=== PATIENT | female | born 1985 | race Caucasian/White ===

== ENCOUNTER 2019-08-14 07:34 | Outpatient (REF) | payer OTHER, SELFPAY ==
[2019-08-14 08:35] LABS: Basophils # 0.1 10^3/uL (0.0-0.1); Basophils % 1.3 %; Eosinophils # 0.1 10^3/uL (0.0-0.8); Eosinophils % 2.3 %; Hematocrit 39.8 % (37.0-47.0); Lymphocytes # 2.1 10^3/uL (0.8-4.8); Lymphocytes % 33.7 %; Mean Corpuscular HGB Conc 30.2 g/dL (30.0-36.0); Mean Corpuscular Hemoglobin 24.8 pg (28.0-34.0); Mean Corpuscular Volume 82.2 fL (81-99); Mean Platelet Volume 10.7 fL (7.4-10.4); Monocytes # 0.5 10^3/uL (0.2-0.9); Monocytes % 7.3 %; Neutrophils # 3.4 10^3/uL (1.8-7.7); Neutrophils % 55.2 %; Nucleated Red Blood Cells % 0 %; Platelet Count 291 10^3/cmm (130-400); Red Blood Count 4.84 10^6/uL (4.1-5.3); Red Cell Distribution Width 15.3 % (12.1-15.1); White Blood Count 6.2 10^3/uL (4.0-10.0)
[2019-08-14 13:23] LABS: Chol HDL Ratio 2.98 mg/dL (0.0-4.40); Cholesterol 164 mg/dL (0-200); Glucose 151 mg/dL (65-115); HDL Cholesterol 55 mg/dL (60-100); LDL Cholesterol Calculated 89 mg/dL (50-129); LDL HDL Ratio 1.62 RATIO (0.00-3.22); Triglycerides 102 mg/dL (0-150)
[2019-08-15 03:15] LABS: Estmated Average Glucose 174; Hemoglobin A1C 7.7 % (4.0-6.0)
== END 2019-08-14 07:35 | disposition home or self-care (01) ==
LOC: LAB 07:34
PROVIDERS: Family Provider Internal Medicine; PCP Internal Medicine; Visit Provider Dermatology
DX: Z01.89 Encounter for other specified special examinations (principal)
CPT/HCPCS: 80061; 82947; 83036; 84443; 85025

== ENCOUNTER → 2019-09-11 16:20 | Outpatient (BNVA) | payer OTHER, SELFPAY | PROVIDERS: Family Provider Internal Medicine; PCP Internal Medicine; Visit Provider Obstetrics & Gynecology | DX: N76.0 Acute vaginitis (principal); B96.89 Other specified bacterial agents as the cause of diseases classified elsewhere | CPT/HCPCS: 87210 ==

== ENCOUNTER → 2019-11-13 14:33 | Outpatient (BNVA) | payer OTHER, SELFPAY | PROVIDERS: Family Provider Internal Medicine; PCP Internal Medicine; Visit Provider Obstetrics & Gynecology | DX: B37.3 Candidiasis of vulva and vagina (principal) | CPT/HCPCS: 87210 ==

== ENCOUNTER → 2020-01-13 08:49 | Outpatient (BNVA) | payer OTHER, SELFPAY | PROVIDERS: Family Provider Internal Medicine; PCP Internal Medicine; Visit Provider Dermatology | DX: L92.0 Granuloma annulare (principal); D22.9 Melanocytic nevi, unspecified | CPT/HCPCS: 11900; 96372; 99203; J3301 ==

== ENCOUNTER → 2020-02-10 09:02 | Outpatient (BNVA) | payer OTHER, SELFPAY | PROVIDERS: Family Provider Internal Medicine; PCP Internal Medicine; Visit Provider Dermatology | DX: L92.0 Granuloma annulare (principal) | CPT/HCPCS: 11901; 99213; J3301 ==

== ENCOUNTER → 2020-03-04 14:18 | Outpatient (BNVA) | payer OTHER, SELFPAY | PROVIDERS: Family Provider Internal Medicine; PCP Internal Medicine; Visit Provider Nurse Practitioner | DX: J02.9 Acute pharyngitis, unspecified (principal) | CPT/HCPCS: 87071; 87880 ==

== ENCOUNTER → 2020-03-23 15:29 | Outpatient (BNVA) | payer OTHER, SELFPAY | PROVIDERS: Family Provider Internal Medicine; PCP Internal Medicine; Visit Provider Dermatology | DX: L92.0 Granuloma annulare (principal) | CPT/HCPCS: 11900; 99213; J3301 ==

== ENCOUNTER → 2020-04-14 16:16 | Outpatient (BNVA) | payer OTHER, SELFPAY | PROVIDERS: Family Provider Internal Medicine; PCP Internal Medicine; Visit Provider Obstetrics & Gynecology | DX: L65.9 Nonscarring hair loss, unspecified (principal) | CPT/HCPCS: 84402; 84443 ==

== ENCOUNTER → 2020-05-25 07:57 | Outpatient (BNVA) | payer OTHER, SELFPAY | PROVIDERS: Family Provider Internal Medicine; PCP Internal Medicine; Visit Provider Podiatrist Foot & Ankle Surgery | DX: M79.671 Pain in right foot (principal) | CPT/HCPCS: 73630 ==

== ENCOUNTER 2020-05-31 08:21 | Outpatient (CLI) | payer OTHER, SELFPAY ==
--- NOTE | 2020-05-31 08:30 | MM_ITS ---
WS: [id number] BILATERAL DIGITAL DIAGNOSTIC MAMMOGRAM MAMMOGRAPHY WITH CAD CLINICAL INFORMATION: N64.4 - Mastodynia COMPARISON: 07 22,018 TECHNIQUE: Bilateral CC, MLO, and ML views. FINDINGS: The breasts are composed of heterogeneous fibroglandular density, which can limit the detection of sm all underlying mass lesions. No suspicious mammographic findings in the left breast. Ultrasound is pe nding. Unremarkable and unchanged right breast. ULTRASOUND BREAST LEFT TECHNIQUE: Ultrasound left breast focused area of concern. CLINICAL INFORMATION: N64.4 - Mastodynia COMPARISON: None. FINDINGS: Ultrasound left breast in the area of concern. No evidence of cystic or solid lesions. Normal underly ing parenchymal tissue. No lesions to target for biopsy. MM/[place] [id number] IMPRESSION: BI-RADS: 2-Benign FOLLOW UP: 1 Year Follow-up Recommend return to annual screening mammography.
--- NOTE | 2020-05-31 09:00 | US_ITS ---
WS: [id number] BILATERAL DIGITAL DIAGNOSTIC MAMMOGRAM MAMMOGRAPHY WITH CAD CLINICAL INFORMATION: N64.4 - Mastodynia COMPARISON: 07 22,018 TECHNIQUE: Bilateral CC, MLO, and ML views. FINDINGS: The breasts are composed of heterogeneous fibroglandular density, which can limit the detection of sm all underlying mass lesions. No suspicious mammographic findings in the left breast. Ultrasound is pe nding. Unremarkable and unchanged right breast. ULTRASOUND BREAST LEFT TECHNIQUE: Ultrasound left breast focused area of concern. CLINICAL INFORMATION: N64.4 - Mastodynia COMPARISON: None. FINDINGS: Ultrasound left breast in the area of concern. No evidence of cystic or solid lesions. Normal underly ing parenchymal tissue. No lesions to target for biopsy. US/US breast LT limited* [id number] IMPRESSION: BI-RADS: 2-Benign FOLLOW UP: 1 Year Follow-up Recommend return to annual screening mammography.
== END 2020-05-31 08:22 | disposition home or self-care (01) ==
LOC: RADSHAW 08:24
PROVIDERS: PCP Internal Medicine; Visit Provider Obstetrics & Gynecology
DX: N64.4 Mastodynia (principal)
CPT/HCPCS: 76642; 77066

== ENCOUNTER → 2020-12-14 10:50 | Outpatient (BNVA) | payer OTHER, SELFPAY | PROVIDERS: PCP Family Medicine; Visit Provider Nurse Practitioner Women's Health | DX: Z01.419 Encounter for gynecological examination (general) (routine) without abnormal findings (principal); F52.31 Female orgasmic disorder | CPT/HCPCS: 88175 ==

== ENCOUNTER 2021-09-28 07:46 | Outpatient (CLI) | payer OTHER, SELFPAY ==
--- NOTE | 2021-09-28 07:55 | US_ITS ---
WS: [id number] ULTRASOUND THYROID TECHNIQUE: Ultrasound of the thyroid. CLINICAL INFORMATION: HYPERTHYROIDISM COMPARISON: None. FINDINGS: Thyroid: Right and left thyroid lobes are normal in size and echotexture. Solid mixed echogenicity nodule RIGHT thyroid measuring 7.5 x 5.1 x 8.1 mm in the mid thyroid. Tiny cystic lesion in LEFT mid thyroid measuring 3.1 x 2.1 x 3.5 mm likely incidental colloid cyst. Right thyroid lobe: 5.0 cm x 1.4 cm x 1.1 cm Left thyroid lobe: 3.8 cm x 1.3 cm x 1.3 cm. Isthmus: 0.3 mm. Cervical lymphadenopathy: None. US/US thyroid [id number] IMPRESSION: Solid mixed echogenicity nodule RIGHT thyroid measuring 7.5 x 5.1 x 8.1 mm in t he mid thyroid with a hypoechoic halo. This can be further evaluated with FNA o r alternatively 12 month follow-up.
== END 2021-09-28 07:47 | disposition home or self-care (01) ==
LOC: RAD 07:48
PROVIDERS: PCP Family Medicine; Visit Provider Physician Assistant
DX: E05.90 Thyrotoxicosis, unspecified without thyrotoxic crisis or storm (principal); E04.1 Nontoxic single thyroid nodule
CPT/HCPCS: 76536

== ENCOUNTER 2022-03-20 08:43 | Outpatient (CLI) | payer SELFPAY ==
[2022-03-20 08:53] LABS: HF Add Manual Diff No
[2022-03-20 09:15] LABS: Basophils # 0.1 10^3/uL (0.0-0.1); Basophils % 1.5 %; Eosinophils # 0.2 10^3/uL (0.0-0.8); Eosinophils % 2.6 %; Hematocrit 40.3 % (37.0-47.0); Hemoglobin 12.1 g/dL (11.5-15.3); Lymphocytes # 2.3 10^3/uL (0.8-4.8); Lymphocytes % 34.3 %; Mean Corpuscular Hemoglobin 25.9 pg (28.0-34.0); Mean Corpuscular Volume 86.1 fl (81-99); Mean Platelet Volume 10.1 fL (7.4-10.4); Monocytes # 0.4 10^3/uL (0.2-0.9); Monocytes % 6.5 %; Neutrophils # 3.61 10^3/uL (1.8-7.7); Neutrophils % 54.9 %; Nucleated Red Blood Cells % 0 %; Platelet Count 303 10^3/cmm (130-400); Red Blood Count 4.68 10^6/uL (4.1-5.3); Red Cell Distribution Width 14.3 % (12.1-15.1); White Blood Count 6.6 10^3/uL (4.0-10.0)
[2022-03-20 09:30] LABS: Alanine Aminotransferase 11 U/L (0-33); Alkaline Phosphatase 70 U/L (35-105); Anion Gap 13.2 (5-19); Aspartate Amino Transferase 15 U/L (0-32); Blood Urea Nitrogen 11 mg/dL (6-20); Calcium 9.4 mg/dL (8.5-10.5); Carbon Dioxide 28 mmol/L (22-29); Chloride 104 mmol/L (98-107); Chol HDL Ratio 2.66 mg/dL (0.0-4.40); Cholesterol 189 mg/dL (0-200); Globulin 3.2 g/dL (1.3-4.6); Glomerular Filtration Rate 93.6 mL/min (90-130); Glucose 138 mg/dL (65-115); HDL Cholesterol 71 mg/dL (60-100); LDL Cholesterol Calculated 98 mg/dL (50-129); LDL HDL Ratio 1.38 RATIO (0.00-3.22); Osmolality Calculated 294 mOsm/kg (285-295); Potassium 4.2 mmol/L (3.5-5.1); Sodium 141 mmol/L (136-145); Total Bilirubin 0.2 mg/dL (0.15-1.2); Total Protein 7.2 g/dL (6.6-8.7); Triglycerides 98 mg/dL (0-150)
[2022-03-20 09:35] LABS: Estmated Average Glucose 209; Hemoglobin A1C 8.9 % (4.0-6.0)
[2022-03-20 10:39] LABS: 25 Hydroxy Vitamin D 35 ng/mL (30-100)
== END 2022-03-20 08:44 | disposition home or self-care (01) ==
LOC: LAB 08:48
PROVIDERS: PCP Family Medicine; Visit Provider Dermatology
DX: Z01.89 Encounter for other specified special examinations (principal)

== ENCOUNTER 2022-09-05 12:16 | Outpatient (CLI) | payer OTHER, SELFPAY ==
[2022-09-05 13:18] LABS: Creatinine Urine, Random 109 mg/dL (28-217); Microalbumin Random Urine 8 ug/dL (0-20)
[2022-09-05 13:24] LABS: Microalbum Creatinine Ratio Ur 73 mg/dL (0-20)
[2022-09-05 13:25] LABS: Alanine Aminotransferase 11 U/L (0-33); Albumin Level 3.5 g/dL (3.5-5.2); Alkaline Phosphatase 72 U/L (35-105); Anion Gap 13.7 (5-19); Aspartate Amino Transferase 14 U/L (0-32); Blood Urea Nitrogen 9 mg/dL (6-20); Calcium 8.6 mg/dL (8.5-10.5); Carbon Dioxide 25 mmol/L (22-29); Chloride 102 mmol/L (98-107); Free T4 Free Thyroxine 1.21 ng/dL (0.82-1.77); Globulin 3.2 g/dL (1.3-4.6); Glomerular Filtration Rate 80.3 mL/min (90-130); Glucose 257 mg/dL (65-115); Osmolality Calculated 291 mOsm/kg (285-295); Potassium 3.7 mmol/L (3.5-5.1); Sodium 137 mmol/L (136-145); Thyroid Stimulating Hormone 0.47 uIU/mL (0.27-4.20); Total Bilirubin 0.2 mg/dL (0.15-1.2); Total Protein 6.7 g/dL (6.6-8.7)
[2022-09-05 13:41] LABS: Estmated Average Glucose 177; Hemoglobin A1C 7.8 % (4.0-6.0)
== END 2022-09-05 12:17 | disposition home or self-care (01) ==
LOC: LAB 12:20
PROVIDERS: PCP Family Medicine; Visit Provider Physician Assistant
DX: E10.65 Type 1 diabetes mellitus with hyperglycemia (principal); E05.90 Thyrotoxicosis, unspecified without thyrotoxic crisis or storm
CPT/HCPCS: 80053; 82044; 83036; 84439; 84443

== ENCOUNTER 2023-02-25 12:17 | Outpatient (CLI) | payer OTHER, SELFPAY ==
--- NOTE | 2023-02-25 | ECG_ITS ---
[facility] Test Date: 2023-02-25 Pat Name: Yecenia Nuñez Department: Room: Gender: Female Automatic Hemmer: : 1985 Requested By: Arina Mendoza Order Number: [id number] David Childs MD: Kay Wise M.D. Interpretive Statements NAME OF STUDY: TREADMILL STRESS TEST INDICATION: Atypical Chest Pain Baseline blood pressure of 104/76 mm Hg, heart rate 116 beats per minute and oxygen saturation of 97%. EKG showed sinus rhythm with right axis deviation with normal ST-Ts. The patient exercised for 10 minutes 21 seconds on a standard Jesus protocol. Patient attained a maximum heart rate of 190 beats per minute(104% of the maximum predicted heart rate) with a blood pressure at the peak exercise of 150/74 mm Hg oxygen saturation of 91%. The EKG at the peak exercise revealed sinus tachycardia with no significant ST-T wave changes. Patient did not have any chest pain or any significant arrhythmis with the exercise. Related PVCs noted during exercise. During the recovery phase, there were no new changes. Blood pressure at the end of the recovery phase was 111/77 mm Hg with a heart rate of 117 beats per minute saturation of 97%. CONCLUSION: 1. Normal EKG response to treadmill exercise. 2. No exercise-induced chest pain or cardiac arrhythmia. 3. Excellent exercise tolerance, attained a maximum of 13.5 METs. 4. Baseline normal blood pressure with normal response to exercise. 5. Watson Treadmill score of 10.5, suggestive of low risk. Electronically Signed On 03-01-2023 13:40:53 CDT by Kay Wise M.D. [id number]
[2023-02-25 13:45] VITALS: BMI 24.3
[2023-02-25 14:17] VITALS: BP 117/76; PULSE 112
== END 2023-02-25 12:18 | disposition home or self-care (01) ==
LOC: CDL 12:17
PROVIDERS: PCP Family Medicine; Visit Provider Family Medicine
DX: R07.89 Other chest pain (principal)
CPT/HCPCS: 93017

== ENCOUNTER 2023-08-26 12:03 | Outpatient (CLI) | payer OTHER, SELFPAY ==
[2023-08-26 13:17] LABS: Estmated Average Glucose 203; Hemoglobin A1C 8.7 % (4.0-6.0)
[2023-08-26 13:47] LABS: Alanine Aminotransferase 12 U/L (0-33); Albumin Level 3.9 g/dL (3.5-5.2); Alkaline Phosphatase 75 U/L (35-105); Anion Gap 15.9 (5-19); Aspartate Amino Transferase 20 U/L (0-32); Blood Urea Nitrogen 16 mg/dL (6-20); Carbon Dioxide 25 mmol/L (22-29); Chloride 100 mmol/L (98-107); Free T4 Free Thyroxine 1.08 ng/dL (0.82-1.77); Globulin 3.6 g/dL (1.3-4.6); Glomerular Filtration Rate 79.9 mL/min (90-130); Glucose 157 mg/dL (65-115); Osmolality Calculated 288 mOsm/kg (285-295); Potassium 3.9 mmol/L (3.5-5.1); Sodium 137 mmol/L (136-145); Total Bilirubin 0.2 mg/dL (0.15-1.2); Total Protein 7.5 g/dL (6.6-8.7)
== END 2023-08-26 12:04 | disposition home or self-care (01) ==
LOC: LAB 12:08
PROVIDERS: PCP Family Medicine; Visit Provider Physician Assistant
DX: E10.3591 Type 1 diabetes mellitus with proliferative diabetic retinopathy without macular edema, right eye (principal)
CPT/HCPCS: 36415; 80053; 83036; 84439; 84443

== ENCOUNTER 2023-12-24 09:15 | Outpatient (CLI) | payer OTHER, SELFPAY ==
[2023-12-24 10:21] LABS: Alanine Aminotransferase 10 U/L (0-33); Albumin Level 3.6 g/dL (3.5-5.2); Alkaline Phosphatase 75 U/L (35-105); Anion Gap 14.2 (5-19); Aspartate Amino Transferase 12 U/L (0-32); Blood Urea Nitrogen 11 mg/dL (6-20); Calcium 8.9 mg/dL (8.5-10.5); Carbon Dioxide 26 mmol/L (22-29); Chloride 102 mmol/L (98-107); Chol HDL Ratio 2.09 mg/dL (0.0-4.40); Cholesterol 182 mg/dL (0-200); Free T4 Free Thyroxine 1.02 ng/dL (0.82-1.77); Globulin 3.4 g/dL (1.3-4.6); Glomerular Filtration Rate 79.9 mL/min (90-130); Glucose 177 mg/dL (65-115); HDL Cholesterol 87 mg/dL (60-100); LDL Cholesterol Calculated 83 mg/dL (50-129); LDL HDL Ratio 0.95 RATIO (0.00-3.22); Osmolality Calculated 290 mOsm/kg (285-295); Potassium 4.2 mmol/L (3.5-5.1); Sodium 138 mmol/L (136-145); Thyroid Stimulating Hormone 0.53 uIU/mL (0.27-4.20); Total Bilirubin 0.2 mg/dL (0.15-1.2); Triglycerides 59 mg/dL (0-150)
[2023-12-24 10:26] LABS: Estmated Average Glucose 197; Hemoglobin A1C 8.5 % (4.0-6.0)
== END 2023-12-24 09:16 | disposition home or self-care (01) ==
PROVIDERS: PCP Family Medicine; Visit Provider Physician Assistant
DX: E05.90 Thyrotoxicosis, unspecified without thyrotoxic crisis or storm (principal)
CPT/HCPCS: 36415; 80053; 80061; 83036; 84439; 84443

== ENCOUNTER → 2024-02-04 12:46 | Outpatient (BNVA) | payer OTHER, SELFPAY | PROVIDERS: PCP Family Medicine; Visit Provider Nurse Practitioner Family | DX: R53.83 Other fatigue (principal) | CPT/HCPCS: 82306; 85025 ==

== ENCOUNTER 2024-04-23 08:13 | Outpatient (CLI) | payer OTHER, SELFPAY ==
--- NOTE | 2024-04-23 08:30 | MM_ITS ---
WS: [id number] Bilateral screening 3D tomosynthesis digital mammogram, 04/23/2024 8:24 AM Clinical Data: Z12.31 - Encounter for screening mammogram for malignant ... Comparison: 05/31/2020, 07/22/2017. Findings: No spiculated masses or clustered calcifications are seen. There are no secondary signs of carcinoma . MM/MM scr BI tomosynthesis [id number] Impression: Negative bilateral mammogram unchanged. Recommend annual screening mammograms. BIRADS: 1 - Negative FOLLOW UP: 1 Year Follow-up DENSITY: The breasts are heterogeneously dense, which may obscure small masses. The CAD bingo checker was used
== END 2024-04-23 08:14 | disposition home or self-care (01) ==
LOC: RAD 08:16
PROVIDERS: PCP Family Medicine; Visit Provider Nurse Practitioner Women's Health
DX: Z12.31 Encounter for screening mammogram for malignant neoplasm of breast (principal)
CPT/HCPCS: 77063; 77067

== ENCOUNTER 2024-09-11 11:36 | Outpatient (CLI) | payer OTHER, SELFPAY ==
[2024-09-11 12:45] LABS: Estmated Average Glucose 214; Hemoglobin A1C 9.1 % (4.0-6.0)
[2024-09-11 12:46] LABS: Creatinine Urine, Random 35 mg/dL (28-217); Microalbum Creatinine Ratio Ur 29 mg/dL (0-20); Microalbumin Random Urine 1 ug/dL (0-20)
[2024-09-11 12:57] LABS: Alanine Aminotransferase 13 U/L (0-33); Albumin Level 3.6 g/dL (3.5-5.2); Alkaline Phosphatase 66 U/L (35-105); Anion Gap 11.5 (5-19); Aspartate Amino Transferase 15 U/L (0-32); Blood Urea Nitrogen 10 mg/dL (6-20); Calcium 8.9 mg/dL (8.5-10.5); Carbon Dioxide 26 mmol/L (22-29); Chloride 104 mmol/L (98-107); Globulin 2.9 g/dL (1.3-4.6); Glomerular Filtration Rate 110.7 mL/min (90-130); Glucose 307 mg/dL (65-115); Osmolality Calculated 295 mOsm/kg (285-295); Potassium 4.5 mmol/L (3.5-5.1); Sodium 137 mmol/L (136-145); Total Bilirubin 0.2 mg/dL (0.15-1.2); Total Protein 6.5 g/dL (6.6-8.7)
== END 2024-09-11 11:37 | disposition home or self-care (01) ==
PROVIDERS: PCP Family Medicine; Visit Provider Physician Assistant
DX: E05.90 Thyrotoxicosis, unspecified without thyrotoxic crisis or storm (principal); E10.3591 Type 1 diabetes mellitus with proliferative diabetic retinopathy without macular edema, right eye
CPT/HCPCS: 36415; 80053; 82044; 83036; 84443

== ENCOUNTER → 2024-09-14 15:05 | Outpatient (BNVA) | payer OTHER, SELFPAY | PROVIDERS: PCP Family Medicine; Visit Provider Family Medicine | DX: D50.9 Iron deficiency anemia, unspecified (principal); G25.81 Restless legs syndrome; N89.8 Other specified noninflammatory disorders of vagina | CPT/HCPCS: 82728; 83550; 85025; 87070; 87205 ==

== ENCOUNTER 2024-12-30 18:54 | Emergency (ER) | payer OTHER, SELFPAY ==
--- OUTSIDE RECORDS SUMMARY | 2016-12-14 06:13 | XMS_ITS | Continuity of Care Document ---
Author Organization [facility] Address [address] [place] [address] Phone Care Team Providers Care Phlebotomy Technologist Name Role Phone Unavailable Unavailable Unavailable Advance Directives Directive Yes / No Effective Date File Name No Information Encounters Encounter Description Practice Location Reason(s) For Visit Diagnoses Date Provider Providers Copied on Encounter [facility], [address] [address], [place], [address], [place] tel:[phone] [facility] No Information [phone] No Information Referring Provider: GARCÍA TOWNSEND II, [address] [place], [address]. tel:[phone] Family History Family Member Type Diagnosis Age At Onset No Information Payers Payer name Insurance type Covered constitution party ID Authoriza tiny(s) [employer] PPO [id number] Social History Type Description Quantity Date Captured Comments Sex Female Smoking Status No Information Chief Complaint And Reason For Visit No Information History Of Present Illness Encounter Date Complaint History Of Prese nt Illness No Information Instructions Date Instruction Additional Infor mation No Information Assessments Type Assessment Date No Information
[2024-12-30] VITALS (7 sets, daily range): BP systolic 104–143; BP diastolic 9–93; PULSE 91–112; RESP 17–18; TEMP 36.4; O2SAT 95–100; BMI 23.9
--- OUTSIDE RECORDS SUMMARY | 2024-12-30 19:01 | XMS_ITS | Encounter Summary ---
Author Organization [facility] Address [address] [place] [address] Care Team Providers Care Mails Supervisor Name Role Phone Wicho Garay Primary Care Provide r Reason for Visit * Reason Onset Date Comments Medication Refill 12/15/2024 Encounter Details Date Type Department Care Team (Late st Contact Info) Description 12/15/2024 Refill [facility] [address] [place] [phone] Jerome Ann PA [address] [place] [address] Social History Tobacco Use Types Packs/Day Years Used Date Smoking Tobacco: Never Smokeless Tobacco: Never Alcohol Use Standard Drinks/Week Comments No 0 (1 standard drink = 0.6 oz pur e alcohol) Comments No Sex and Gender Information Value Date Recorded Sex Assigned at Not on file Legal Sex Female 3:08 PM AIR TESTER Gender Identity Not on file Sexual Orientation Not on file documented as of this encounter Plan of Treatment Upcoming Encounters Date Type Department Care Team (Late st Contact Info) Description 03/05/2025 9:00 AM CDT Office Visit [facility] [address] [place] [phone] Jerome Ann PA [address] [place] [address] 05/12/2025 10:10 AM AIR TESTER Office Visit [facility] Op[facility] [place] [address] [place] [address] Airam Arellano MD [address] [place] [address] documented as of this encounter Visit Diagnoses Not on filedocumented in this encounter Care Teams Mails Supervisor Relationship Specialty Start Date End Date Wicho Garay DO [address] [facility] [address] [place] [address] PCP - General Internal Medicine 01/21/18 documented as of this encounter
--- OUTSIDE RECORDS SUMMARY | 2024-12-30 19:01 | XMS_ITS | Encounter Summary ---
Author Organization [facility] Address [address] [place] [address] Care Team Providers Care Dye Weigher Helper Name Role Phone Wicho Garay Primary Care Provide r Reason for Visit * Reason Comments Med Refill Encounter Details Date Type Department Care Team (Late Contact Info) Description 12/24/2024 Refill [facility] [address] [place] [phone] Jerome Ann PA [address] [place] [address] Social History Tobacco Use Types Packs/Day Years Used Date Smoking Tobacco: Never Smokeless Tobacco: Never Alcohol Use Standard Drinks/Week Comments No 0 (1 standard drink = 0.6 oz pur e alcohol) Comments No Sex and Gender Information Value Date Recorded Sex Assigned at Not on file Legal Sex Female 3:08 PM PRINCIPAL STRATEGIST Gender Identity Not on file Sexual Orientation Not on file documented as of this encounter Plan of Treatment Upcoming Encounters Date Type Department Care Team (Late Contact Info) Description 03/05/2025 9:00 AM CDT Office Visit [facility] [address] [place] [address] Jerome Ann PA [address] [place] [address] 05/12/2025 10:10 AM PRINCIPAL STRATEGIST Office Visit [facility] Op[facility] [place] [address] [place] [address] Airam Arellano MD [address] [place] [address] documented as of this encounter Visit Diagnoses Not on filedocumented in this encounter Care Teams Dye Weigher Helper Relationship Specialty Start Date End Date Wicho Garay DO [address] [facility] [address] [place] [address] PCP - General Internal Medicine 01/21/18 documented as of this encounter
--- OUTSIDE RECORDS SUMMARY | 2024-12-30 19:01 | XMS_ITS | Encounter Summary ---
Author Organization [facility] Address [address] [place] [address] Care Team Providers Care Roll Line Operator Name Role Phone Wicho Garay Primary Care Provide r Encounter Details Date Type Department Care Team (Latest Contact Info) Description 07/26/2016 Ancillary Orders [facility] External Department [address] [place] [phone] Abimael Quiñones MD [address] [place] [address] HRP (high risk ), unspecified trimester Social History Tobacco Use Types Packs/Day Years Used Date Smoking Tobacco: Never Smokeless Tobacco: Never Alcohol Use Standard Drinks/Week Comments No 0 (1 standard drink = 0.6 oz pur e alcohol) Comments Yes Sex and Gender Information Value Date Recorded Sex Assigned at Not on file Legal Sex Female 6:54 AM MEDIA RELATIONS SPECIALIST Gender Identity Not on file Sexual Orientation Not on file Occupation Industry Job Start Date Job End Date Not on file Not on file Not on file Not on file documented as of this encounter Plan of Treatment Not on file documented as of this encounter Results * US OB LTD 1 OR MORE FETUSES (07/26/2016 2:06 PM MEDIA RELATIONS SPECIALIST) Anatomical Region Laterality Modality Pelvis Ultrasound 07/26/2016 1:16 PM MEDIA RELATIONS SPECIALIST Impressions 07/26/2016 11:39 PM MEDIA RELATIONS SPECIALIST IMPRESSION Findings Comment Early intrauterine Gestational age is in agreement with established dating Narrative 07/26/2016 11:39 PM [facility] 1st Trimester Pat. Name: MURIEL ALEXIS Study Date: 07/26/2016 1:16pm Pat. NO: [id number] Referring MD: ABIMAEL QUIÑONES Site: [facility] Surveillance Camera Technician: Lynn Rodriguez RDMS : 1985 Age: 31 INDICATION Diabetes Mellitus - Type I CODING Procedures [id number]: Limited 1 or more - PANTERA, FHR, position. HISTORY OB History : 2. Para: 0. A1. Miscarriages: 1. METHOD Transabdominal ultrasound examination. Adequate visualization. Bragg . Number of fetuses: 1. DATING LMP on: 04/15/2016 GA by LMP 14 w + 4 d MONISHA by LMP: 01/20/2017 Ultrasound examination on: 07/26/2016 GA by U/S based upon: CRL GA by U/S 14 w + 3 d MONISHA by U/S: 01/21/2017 Assigned: Dating performed on 07/26/2016, based on the LMP Assigned GA 14 w + 4 d Assigned MONISHA: 01/20/2017 BIOMETRY CRL 85.1 mm 14w 3d [place]lock FHR 152 bpm GENERAL EVALUATION Cardiac activity: present. Amniotic fluid: subjectively normal. ANATOMY Abdom. wall normal Stomach visualized Bladder visualized Upper extrem. visualized Lower extrem. visualized MATERNAL STRUCTURES Uterus Normal. Appearance: No abnormalities visualized. Right Ovary Visualized. Appearance: No adnexal mass identified. Left Ovary Normal. Appearance: No adnexal mass identified. Cul de Sac Visualized. Imaging of the cul-de-sac is unremarkable. Procedure Note Cristian Wick II, MD - 07/26/2016 [place] 1st Trimester Pat. Name:KLEBER ALEXISBruce Date:07/26/2016 1:16pm Pat. NO: [id number] MD:ABIMAEL QUIÑONES [facility]ynn Rodriguez RDMS :1985Age:31 INDICATION Diabetes Mellitus - Type I CODING Procedures [id number]: Limited 1 or more - PANTERA, FHR, position. HISTORY OB History : 2. Para: 0. A1. Miscarriages: 1. METHOD Transabdominal ultrasound examination. Adequate visualization. Bragg . Number of fetuses: 1. DATING LMP on:04/15/2016 GA by LMP14 w + 4 d MONISHA by LMP:01/20/2017 Ultrasound examination on:07/26/2016 GA by U/S based upon:CRL GA by U/S14 w + 3 d MONISHA by U/S:01/21/2017 Assigned:Dating performed on 07/26/2016, based on the LMP Assigned GA14 w + 4 d Assigned MONISHA:01/20/2017 BIOMETRY CRL 85.1 mm 14w 3d [place] FHR 152 bpm GENERAL EVALUATION Cardiac activity: present. Amniotic fluid: subjectively normal. ANATOMY Abdom. wall normal Stomach visualized Bladder visualized Upper extrem. visualized Lower extrem. visualized MATERNAL STRUCTURES Uterus Normal. Appearance: No abnormalities visualized. Right Ovary Visualized. Appearance: No adnexal mass identified. Left Ovary Normal. Appearance: No adnexal mass identified. Cul de Sac Visualized. Imaging of the cul-de-sac is unremarkable. IMPRESSION IMPRESSION Findings Comment Early intrauterine Gestational age is in agreement with established dating Abimael Quiñones MD ORDERABLES Final Result documented in this encounter Visit Diagnoses Diagnosis HRP (high risk ), unspecified trimester documented in this encounter Care Teams Roll Line Operator Relationship Specialty Start Date End Date Wicho Garay DO [address] [phone] PCP - General Internal Medicine 01/21/18 documented as of this encounter
--- OUTSIDE RECORDS SUMMARY | 2024-12-30 19:01 | XMS_ITS | Encounter Summary ---
Author Organization [facility] Address [address] [place] [address] Care Team Providers Care Manager Desktop Name Role Phone Wicho Garay Primary Care Provide r Encounter Details Date Type Department Care Team (Latest Contact Info) Description 07/24/2016 Ancillary Orders [facility] External Department [address] [place] [phone] Abimael Quiñones MD [address] [place] [address] Controlled diabetes mellitus type 1 without complications (CMS/HCC) Social History Tobacco Use Types Packs/Day Years Used Date Smoking Tobacco: Never Smokeless Tobacco: Never Alcohol Use Standard Drinks/Week Comments No 0 (1 standard drink = 0.6 oz pur e alcohol) Comments Yes Sex and Gender Information Value Date Recorded Sex Assigned at Not on file Legal Sex Female 6:54 AM NETWORK TECHNICIAN Gender Identity Not on file Sexual Orientation Not on file Occupation Industry Job Start Date Job End Date Not on file Not on file Not on file Not on file documented as of this encounter Plan of Treatment Not on file documented as of this encounter Results * US OB DETAIL SINGLE GEST (09/03/2016 12:57 PM NETWORK TECHNICIAN) Anatomical Region Laterality Modality Pelvis Ultrasound 09/03/2016 11:0 4 AM NETWORK TECHNICIAN Impressions 09/03/2016 3:30 PM NETWORK TECHNICIAN IMPRESSION Findings Comment abnormalities are not identified Limited exam due to position. Gestational age is in agreement with established dating Narrative 09/03/2016 3:30 PM [facility] US Pat. Name: MURIEL ALEXIS Study Date: 09/03/2016 11:04am Pat. NO: [id number] Referring MD: ABIMAEL QUIÑONES Site: [facility] Injection Specialist: Nicole Mayo RDMS : 1985 Age: 31 INDICATION Diabetes Mellitus - Type I CODING Diagnosis O24.012: Pre-existing diabetes mellitus, type 1, in . Z3A.20: Weeks Gestation of . Procedures [id number]: OB with Detail (Comprehensive). HISTORY OB History : 2. Para: 0. A1. Miscarriages: 1. METHOD Transabdominal ultrasound examination. Adequate. Bragg . Number of fetuses: 1. DATING LMP on: 04/15/2016 GA by LMP 20 w + 1 d MONISHA by LMP: 01/20/2017 Ultrasound examination on: 09/03/2016 GA by U/S based upon: AC, BPD, EFW, Femur, HC GA by U/S 19 w + 5 d MONISHA by U/S: 01/23/2017 Assigned: Dating performed on 09/03/2016, based on the LMP Assigned GA 20 w + 1 d Assigned MONISHA: 01/20/2017 BIOMETRY Main Biometry: BPD 45.7 mm 36% 19w 6d Hadlock OFD 57.2 mm 47% 20w 0d Dae HC 164.5 mm 8% 19w 1d Hadlock AC 145.9 mm 36% 19w 6d Hadlock Femur 32.5 mm 42% 20w 1d Hadlock Cerebellum tr 20.2 mm 48% 20w 0d Ward CM 3.9 mm 16% Nicolaides Nuchal fold 3.74 mm Humerus 29.8 mm 40% 19w 5d Dae Weight Calculation: EFW 321 g 33% 19w 6d Hadlock EFW (lb,oz) 0 lb oz 11 Calculated by Hadlock ([id number]) Proportionality Ratios: Cephalic index 0.80 62% Nicolaides HC / AC 1.13 23% Nicolaides FL / BPD 0.71 58% Hadlock FL / AC 0.22 63% Hadlock Head / Face / Neck Biometry: [employer] Sales Consultant 7.4 mm Extremities / Bony Struc Biometry: Radius 23.9 mm 7% Chitty Ulna 25.6 mm 13% 19w 2d Dae Tibia 27.4 mm 50% 19w 6d Dae Fibula 28.5 mm 51% 20w 1d Dae GENERAL EVALUATION Cardiac activity: present. FHR 148 bpm. movements: present. Presentation: breech. Placenta: Anterior to left lateral, inferior placental margin is > 2.0 cm from the internal cervical os. Umbilical cord: 3 vessel cord, placental cord insertion is velamentous (superior aspect). Amniotic fluid: Appears normal. ANATOMY The following structures were visualized with normal appearance: Head Head size. Head shape. Brain Parenchyma. Lateral cerebral ventricles. Third ventricle. Fourth ventricle. Cisterna magna. Midline falx. Choroid plexus. Thalami. Cavum septi pellucidi. Posterior fossa. Cerebellum. Cerebrum. Cerebellar lobes. Vermis. Face Profile, nose and upper lip appear normal Nasal bone present. Palate. Maxilla. Mandible. Neck Spine Cervical, thoracic, lumbar and sacral spine appear normal. Thorax No thoracic abnormalities detected. Right lung. Left lung. Diaphragm. Heart Situs. Four chamber view. Abdominal wall Umbilical cord insertion site. Stomach Stomach size and situs appear normal. GI tract Liver. Bowel. Kidneys Kidneys appear normal bilaterally. Bladder size and shape. Upper extrem. Long bones of the upper extremities appear bilaterally symmetric and have normal appearing architecture. Lower extrem. Long bones of the lower extremeties appear bilaterally symmetric and have normal appearing architecture. Skeleton Position of hands: Hands open and close. Position of feet: Configuration of the feet appear normal. The following structures could not be visualized: Heart Left ventricular outflow tract. Right ventricular outflow tract. 3-vessel - trachea view. 3-vessel view. Bicaval view. Aortic arch view. High short axis view. Gender: male. MATERNAL STRUCTURES Uterus Unremarkable. Cervix Unremarkable. Right Ovary Not visualized. Appearance: No adnexal mass identified. Left Ovary Not visualized. Appearance: No adnexal mass identified. Cul de Sac Imaging of the cul-de-sac is unremarkable. Procedure Note Cristian Wick II, MD - 09/03/2016 [facility] Pat. Name:Amelia ALEXIStati Date:09/03/2016 11:04am Pat. NO: [id number] :ABIMAEL QUIÑONES [facility] RD[facility] :1985Age:31 INDICATION Diabetes Mellitus - Type I CODING Diagnosis O24.012: Pre-existing diabetes mellitus, type 1,in . Z3A.20: Weeks Gestation of . Procedures [id number]: OB with Detail (Comprehensive). HISTORY OB History : 2. Para: 0. A1. Miscarriages: 1. METHOD Transabdominal ultrasound examination. Adequate. Bragg . Number of fetuses: 1. DATING LMP on:04/15/2016 GA by LMP20 w + 1 d MONISHA by LMP:01/20/2017 Ultrasound examination on:09/03/2016 GA by U/S based upon:AC, BPD, EFW, Femur, HC GA by U/S19 w + 5 d MONISHA by U/S:01/23/2017 Assigned:Dating performed on 09/03/2016, based on the LMP Assigned GA20 w + 1 d Assigned MONISHA:01/20/2017 BIOMETRY Main Biometry: BPD 45.7 mm 36% 19w 6d Hadlock OFD 57.2 mm 47% 20w 0d Dae HC 164.5 mm 8% 19w 1d Hadlock AC 145.9 mm 36% 19w 6d Hadlock Femur 32.5 mm 42% 20w 1d Hadlock Cerebellum tr 20.2 mm 48% 20w 0d Ward CM 3.9 mm 16% Nicolaides Nuchal fold 3.74 mm Humerus 29.8 mm 40% 19w 5d Dae Weight Calculation: EFW 321 g 33% 19w 6d Hadlock EFW (lb,oz) 0 lb oz 11 Calculated by Juan ([id number]) Proportionality Ratios: Cephalic index 0.80 62% Nicolaides HC / AC 1.13 23% Nicolaides FL / BPD 0.71 58% Hadlock FL / AC 0.22 63% Hadlock Head / Face / Neck Biometry: [employer] Sales Consultant 7.4 mm Extremities / Bony Struc Biometry: Radius 23.9 mm 7% Chitty Ulna 25.6 mm 13% 19w 2d Dae Tibia 27.4 mm 50% 19w 6d Dae Fibula 28.5 mm 51% 20w 1d Dae GENERAL EVALUATION Cardiac activity: present. FHR 148 bpm. movements: present. Presentation: breech. Placenta: Anterior to left lateral, inferior placental margin is > 2.0 cm from the internal cervical os. Umbilical cord: 3 vessel cord, placental cord insertion is velamentous (superior aspect). Amniotic fluid: Appears normal. ANATOMY The following structures were visualized with normal appearance: Head Head size. Head shape. Brain Parenchyma. Lateral cerebral ventricles. Third ventricle. Fourth ventricle. Cisterna magna. Midline falx. Choroid plexus. Thalami. Cavum septi pellucidi. Posterior fossa. Cerebellum. Cerebrum. Cerebellar lobes. Vermis. Face Profile, nose and upper lip appear normal Nasal bone present. Palate. Maxilla. Mandible. Neck Spine Cervical, thoracic, lumbar and sacral spine appear normal. Thorax No thoracic abnormalities detected. Right lung. Left lung. Diaphragm. Heart Situs. Four chamber view. Abdominal wall Umbilical cord insertion site. Stomach Stomach size and situs appear normal. GI tract Liver. Bowel. Kidneys Kidneys appear normal bilaterally. Bladder size and shape. Upper extrem. Long bones of the upper extremities appear bilaterally symmetric and have normal appearing architecture. Lower extrem. Long bones of the lower extremeties appear bilaterally symmetric and have normal appearing architecture. Skeleton Position of hands: Hands open and close. Position of feet: Configuration of the feet appear normal. The following structures could not be visualized: Heart Left ventricular outflow tract. Right ventricular outflow tract. 3-vessel - trachea view. 3-vessel view. Bicaval view. Aortic arch view. High short axis view. Gender: male. MATERNAL STRUCTURES Uterus Unremarkable. Cervix Unremarkable. Right Ovary Not visualized. Appearance: No adnexal mass identified. Left Ovary Not visualized. Appearance: No adnexal mass identified. Cul de Sac Imaging of the cul-de-sac is unremarkable. IMPRESSION IMPRESSION Findings Comment abnormalities are not identified Limited exam due to position. Gestational age is in agreement with established dating Abimael Quiñones MD ORDERABLES Final Result documented in this encounter Visit Diagnoses Diagnosis Controlled diabetes mellitus type 1 without complications (CMS/[facility]) documented in this encounter Care Teams Manager Desktop Relationship Specialty Start Date End Date Wicho Garay DO [address] [id number] PCP - General Internal Medicine 01/21/18 documented as of this encounter
--- OUTSIDE RECORDS SUMMARY | 2024-12-30 19:01 | XMS_ITS | Encounter Summary ---
Author Organization [facility] Address [address] [place] [address] Care Team Providers Care Milk Delivery Driver Name Role Phone Wicho Garay DO Primary Care Provide r Encounter Details Date Type Department Care Team (Latest Contact Info) Description 07/23/2016 Ancillary Orders [facility] External Department [address] [place] [address] Abimael Hunter MD [address] [place] [address] HRP (high risk ), unspecified trimester Social History Tobacco Use Types Packs/Day Years Used Date Smoking Tobacco: Never Smokeless Tobacco: Never Alcohol Use Standard Drinks/Week Comments No 0 (1 standard drink = 0.6 oz pur e alcohol) Comments Unknown Sex and Gender Information Value Date Recorded Sex Assigned at Not on file Legal Sex Female 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
--- OUTSIDE RECORDS SUMMARY | 2024-12-30 19:01 | XMS_ITS | Encounter Summary ---
Author Organization [facility] Address [address] [place] [address] Care Team Providers Care Security System Installer Name Role Phone Wicho Garay Primary Care Provide r Encounter Details Date Type Department Care Team (Latest Contact Info) Description 11/12/2016 Ancillary Orders [facility] External Department [address] [place] [phone] Abimael Quiñones MD [address] [place] [address] Controlled diabetes mellitus type 1 without complications (CMS/HCC) Social History Tobacco Use Types Packs/Day Years Used Date Smoking Tobacco: Never Smokeless Tobacco: Never Alcohol Use Standard Drinks/Week Comments No 0 (1 standard drink = 0.6 oz pur e alcohol) Comments Yes Sex and Gender Information Value Date Recorded Sex Assigned at Not on file Legal Sex Female 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 Name: MURIEL ALEXIS Study Date: 11/12/2016 9:24am Pat. NO: [id number] Referring MD: ABIMAEL QUIÑONES Site[facility] Explosives Mixer Operator: Nicole Mayo RDMS : 1985 Age: 31 INDICATION Diabetes Mellitus - Type I CODING Diagnosis O24.013: Pre-existing diabetes mellitus, type 1, in . Z3A.30: Weeks Gestation of . Procedures [id number]: OB US Follow-up. HISTORY OB History : 2. Para: 0. A1. Miscarriages: 1. METHOD Transabdominal ultrasound examination. Adequate visualization. Bragg . Number of fetuses: 1. DATING LMP on: 04/15/2016 GA by LMP 30 w + 1 d MONISHA by LMP: 01/20/2017 Ultrasound examination on: 11/12/2016 GA by U/S based upon: AC, BPD, EFW, Femur, HC GA by U/S 30 w + 2 d MONISHA by U/S: 01/19/2017 Assigned: Dating performed on 11/12/2016, based on the LMP Assigned GA 30 w + 1 d Assigned MONISHA: 01/20/2017 BIOMETRY Main Biometry: BPD 77.4 mm 67% 31w 0d Hadlock OFD 96.5 mm 76% 31w 1d Dae HC 277.9 mm 22% 30w 3d Hadlock AC 265.2 mm 61% 30w 4d Hadlock Femur 55.8 mm 17% 29w 3d Hadlock Weight Calculation: EFW 1,538 g 41% 29w 6d Hadlock EFW (lb,oz) 3 lb 6 oz Calculated by Hadlock ([id number]-FL) Proportionality Ratios: Cephalic index 0.80 61% Nicolaides HC / AC 1.05 31% Nicolaides FL / BPD 0.72 FL / AC 0.21 GENERAL EVALUATION Cardiac activity: present. FHR 147 bpm. Presentation: cephalic. Placenta: Anterior. Amniotic fluid: MVP 5.2 cm. PANTERA 15.8 cm. Q1 5.2 cm, Q2 4.2 cm, Q3 4.9 cm, Q4 1.5 cm. ANATOMY The following structures were visualized with normal appearance: Brain Lateral cerebral ventricles. Stomach Fluid filled stomach identifed. Kidneys Kidneys appear normal bilaterally. Bladder Fluid filled bladder identified. The following structures were abnormal: Heart Four chamber view: Conotruncal abnormality. Left ventricular outflow tract. Right ventricular outflow tract. Aortic arch view. Procedure Note Delano VELA, Cristian Cobian MD - 11/12/2016 Ward Follow Up Pat. Name:Melva ALEXIS Date:11/12/2016 9:24am Pat. NO: [id number] MD:ABIMAEL QUIÑONES [facility] RD[facility] :1985Age:31 INDICATION Diabetes Mellitus - Type I CODING Diagnosis O24.013: Pre-existing diabetes mellitus, type 1,in . Z3A.30: Weeks Gestation of . Procedures [id number]: OB US Follow-up. HISTORY OB History : 2. Para: 0. A1. Miscarriages: 1. METHOD Transabdominal ultrasound examination. Adequate visualization. Bragg . Number of fetuses: 1. DATING LMP on:04/15/2016 GA by LMP30 w + 1 d MONISHA by LMP:01/20/2017 Ultrasound examination on:11/12/2016 GA by U/S based upon:AC, BPD, EFW, Femur, HC GA by U/S30 w + 2 d MONISHA by U/S:01/19/2017 Assigned:Dating performed on 11/12/2016, based on the LMP Assigned GA30 w + 1 d Assigned MONISHA:01/20/2017 BIOMETRY Main Biometry: BPD 77.4 mm 67% 31w 0d Hadlock OFD 96.5 mm 76% 31w 1d Dae HC 277.9 mm 22% 30w 3d Hadlock AC 265.2 mm 61% 30w 4d Hadlock Femur 55.8 mm 17% 29w 3d Hadlock Weight Calculation: EFW 1,538 g 41% 29w 6d Hadlock EFW (lb,oz) 3 lb 6 oz Calculated by Juan ([id number]) Proportionality Ratios: Cephalic index 0.80 61% Nicolaides HC / AC 1.05 31% Nicolaides FL / BPD 0.72 FL / AC 0.21 GENERAL EVALUATION Cardiac activity: present. FHR 147 bpm. Presentation: cephalic. Placenta: Anterior. Amniotic fluid: MVP 5.2 cm. PANTERA 15.8 cm. Q1 5.2 cm, Q2 4.2 cm, Q3 4.9 cm, Q4 1.5 cm. ANATOMY The following structures were visualized with normal appearance: Brain Lateral cerebral ventricles. Stomach Fluid filled stomach identifed. Kidneys Kidneys appear normal bilaterally. Bladder Fluid filled bladder identified. The following structures were abnormal: Heart Four chamber view: Conotruncal abnormality. Left ventricular outflow tract. Right ventricular outflow tract. Aortic arch view. IMPRESSION IMPRESSION Findings Comment Estimated weight is appropriate for gestational age Cardiac Anomaly us Abimael Quiñones MD ORDERABLES Final Result documented in this encounter Visit Diagnoses Diagnosis Controlled diabetes mellitus type 1 without complications (CMS/[facility]) documented in this encounter Care Teams Security System Installer Relationship Specialty Start Date End Date Wicho Garay DO [address] [phone] PCP - General Internal Medicine 01/21/18 documented as of this encounter
--- OUTSIDE RECORDS SUMMARY | 2024-12-30 19:01 | XMS_ITS | Encounter Summary ---
Author Organization [facility] Address [address] [place] [address] Care Team Providers Care Seaman Name Role Phone Wicho Garay Primary Care Provide r Encounter Details Date Type Department Care Team (Late st Contact Info) Description 12/22/2024 External Device Data [place] ABSTRACTION Provider, Abstract NO ADDRESS ON FILE Social History Tobacco Use Types Packs/Day Years Used Date Smoking Tobacco: Never Smokeless Tobacco: Never Alcohol Use Standard Drinks/Week Comments No 0 (1 standard drink = 0.6 oz pur e alcohol) Comments No Sex and Gender Information Value Date Recorded Sex Assigned at Not on file Legal Sex Female 3:08 PM LANDSCAPING MANAGER Gender Identity Not on file Sexual Orientation Not on file documented as of this encounter Plan of Treatment Upcoming Encounters Date Type Department Care Team (Late st Contact Info) Description 03/05/2025 9:00 AM CDT Office Visit [facility] Endocrinology [facility] [address] [facility] [address] [place] [phone] Jerome Ann PA [address] [place] [address] 05/12/2025 10:10 AM LANDSCAPING MANAGER Office Visit [facility] Ophthalmology [place] [address] [facility] [address] [place] [address] Airam Arellano MD [address] [place] [address] documented as of this encounter Visit Diagnoses Not on filedocumented in this encounter Care Teams Seaman Relationship Specialty Start Date End Date Wicho Garay DO [address] [address] PCP - General Internal Medicine 01/21/18 documented as of this encounter
--- OUTSIDE RECORDS SUMMARY | 2024-12-30 19:01 | XMS_ITS | Encounter Summary ---
Author Organization [facility] Address [address] [place] [address] Care Team Providers Care Gas Operator Name Role Phone Wicho Garay Primary Care Provide r Reason for Visit * Reason Comments Med Refill Encounter Details Date Type Department Care Team (Late Contact Info) Description 12/27/2024 Refill [facility] [address] [place] [phone] Jerome Ann PA [address] 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 [address] 05/12/2025 10:10 AM WOOD CARVER Office Visit [facility] Op[facility] [place] [address] [place] [address] Airam Arellano MD [address] [place] [address] documented as of this encounter Visit Diagnoses Not on filedocumented in this encounter Care Teams Gas Operator Relationship Specialty Start Date End Date Wicho Garay DO [address] [place] [facility] [address] [place] [address] PCP - General Internal Medicine 01/21/18 documented as of this encounter
--- OUTSIDE RECORDS SUMMARY | 2024-12-30 19:01 | XMS_ITS | Encounter Summary ---
Author Organization [facility] Address [address] [place] [address] Care Team Providers Care Ornamenter Name Role Phone Wicho Garay Primary Care Provide r Encounter Details Date Type Department Care Team (Latest Contact Info) Description 08/31/2016 Ancillary Orders [facility] External Department [address] [place] [id number] Nam Quiñones MD [address] [place] [address] Controlled diabetes mellitus type 1 without complications (CMS/HCC) Social History Tobacco Use Types Packs/Day Years Used Date Smoking Tobacco: Never Smokeless Tobacco: Never Alcohol Use Standard Drinks/Week Comments No 0 (1 standard drink = 0.6 oz pur e alcohol) Comments Yes Sex and Gender Information Value Date Recorded Sex Assigned at Not on file Legal Sex Female 6:54 AM [employer] Gender Identity Not on file Sexual Orientation Not on file Occupation Industry Job Start Date Job End Date Not on file Not on file Not on file Not on file documented as of this encounter Plan of Treatment Not on file documented as of this encounter Results * US OB FOLLOW UP PER FETUS (10/15/2016 3:57 PM CDT) Anatomical Region Laterality Modality Pelvis Ultrasound 10/15/2016 2:14 PM CDT Impressions 10/15/2016 4:25 PM CDT IMPRESSION Findings Comment Estimated weight is appropriate for gestational age Cardiac Anomaly echocardiogrpahy performed on this date of service and sent to [facility] for interpretation. Narrative 10/15/2016 4:25 PM CDT [place] Follow Up Pat. Name: MURIEL ALEXIS Study Date: 10/15/2016 2:14pm Pat. NO: [id number] Referring MD: NAM QUIÑONES Site: [facility] Bass String Winder: Nicole Mayo RDMS : 1985 Age: 31 INDICATION Diabetes Mellitus - Type I CODING Diagnosis O24.012: Pre-existing diabetes mellitus, type 1, in . Z3A.26: Weeks Gestation of . Procedures 32509: OB US Follow-up. HISTORY OB History : 2. Para: 0. A1. Miscarriages: 1. METHOD Transabdominal ultrasound examination. Bragg . Number of fetuses: 1. DATING LMP on: 04/15/2016 GA by LMP 26 w + 1 d MONISHA by LMP: 01/20/2017 Ultrasound examination on: 10/15/2016 GA by U/S based upon: AC, BPD, EFW, Femur, HC GA by U/S 25 w + 3 d MONISHA by U/S: 01/25/2017 Assigned: Dating performed on 10/15/2016, based on the LMP Assigned GA 26 w + 1 d Assigned MONISHA: 01/20/2017 BIOMETRY Main Biometry: BPD 64.9 mm 42% 26w 2d Hadlock OFD 79.5 mm 41% 25w 6d Dae HC 230.6 mm 5% 25w 1d Hadlock AC 219.8 mm 50% 26w 3d Hadlock Femur 43.9 mm 4% 24w 3d Hadlock Weight Calculation: EFW 827 g 20% 25w 2d Hadlock EFW (lb,oz) 1 lb oz 13 Calculated by Hadlock ([id number]-GO-NH-FL) Proportionality Ratios: Cephalic index 0.82 80% Nicolaides HC / AC 1.05 14% Nicolaides FL / BPD 0.68 FL / AC 0.20 Head / Face / Neck Biometry: Vegetable Specker 7.9 mm GENERAL EVALUATION Cardiac activity: present. FHR 139 bpm. Presentation: breech. Placenta: Anterior; velamentous cord insertion (superior aspect). Amniotic fluid: MVP 6.8 cm. PANTERA 16.6 cm. Q1 6.8 cm, Q2 5.3 cm, Q3 2.5 cm, Q4 2.0 cm. ANATOMY The following structures were visualized with normal appearance: Brain Lateral cerebral ventricles. Stomach Fluid filled stomach identifed. Kidneys Kidneys appear normal bilaterally. Bladder Fluid filled bladder identified. The following structures were abnormal: Heart Four chamber view. Left ventricular outflow tract. Right ventricular outflow tract. 3-vessel - trachea view. Aortic arch view. Procedure Note Cristian Wick II, MD - 10/15/2016 [place] Follow [place] Pat. Name:Melva ALEXIS Date:10/15/2016 2:14pm Pat. NO: [id number] :NAM QUIÑONES [facility]Nicole Mayo RDMS :1985Age:31 INDICATION Diabetes Mellitus - Type I CODING Diagnosis O24.012: Pre-existing diabetes mellitus, type 1,in . Z3A.26: Weeks Gestation of . Procedures 02596: OB US Follow-up. HISTORY OB History : 2. Para: 0. A1. Miscarriages: 1. METHOD Transabdominal ultrasound examination. Bragg . Number of fetuses: 1. DATING LMP on:04/15/2016 GA by LMP26 w + 1 d MONISHA by LMP:01/20/2017 Ultrasound examination on:10/15/2016 GA by U/S based upon:AC, BPD, EFW, Femur, HC GA by U/S25 w + 3 d MONISHA by U/S:01/25/2017 Assigned:Dating performed on 10/15/2016, based on the LMP Assigned GA26 w + 1 d Assigned MONISHA:01/20/2017 BIOMETRY Main Biometry: BPD 64.9 mm 42% 26w 2d Hadlock OFD 79.5 mm 41% 25w 6d Dae HC 230.6 mm 5% 25w 1d Hadlock AC 219.8 mm 50% 26w 3d Hadlock Femur 43.9 mm 4% 24w 3d Hadlock Weight Calculation: EFW 827 g 20% 25w 2d Hadlock EFW (lb,oz) 1 lb oz 13 Calculated by Hadlock (TIQ-CC-TF-FL) Proportionality Ratios: Cephalic index 0.82 80% Nicolaides HC / AC 1.05 14% Nicolaides FL / BPD 0.68 FL / AC 0.20 Head / Face / Neck Biometry: Vegetable Specker 7.9 mm GENERAL EVALUATION Cardiac activity: present. FHR 139 bpm. Presentation: breech. Placenta: Anterior; velamentous cord insertion (superior aspect). Amniotic fluid: MVP 6.8 cm. PANTERA 16.6 cm. Q1 6.8 cm, Q2 5.3 cm, Q3 2.5 cm, Q4 2.0 cm. ANATOMY The following structures were visualized with normal appearance: Brain Lateral cerebral ventricles. Stomach Fluid filled stomach identifed. Kidneys Kidneys appear normal bilaterally. Bladder Fluid filled bladder identified. The following structures were abnormal: Heart Four chamber view. Left ventricular outflow tract. Right ventricular outflow tract. 3-vessel - trachea view. Aortic arch view. IMPRESSION IMPRESSION Findings Comment Estimated weight is appropriate for gestational age Cardiac Anomaly echocardiogrpahy performed on this date of service and sent to [facility] for interpretation. us Nam Quiñones MD ORDERABLES Final Result * ECHO 2D + COLOR FLOW VELOCITY (10/15/2016 3:57 PM CDT) Pathologist [facility] EJECTION FRACTION INTERFACE SYSTEM 10/15/2016 3:18 PM CDT Narrative INTERFACE SYSTEM - 10/23/2016 9:22 AM CDT [facility] Cardiovascular Services Echocardiography Laboratory [address] [place] [id number] Echocardiography Patient: [place] Study 1 Muriel Robert ID: Gender: F : 1985 Age: 31 Room: Study 10/15/2016 Pt Inpatient Date: Status: Study 03:18 PM [facility] #: [id number] Time: Ordering:Nam Quiñones Impressions: ECHOCARDIOGRAM: 1. 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 Limited short axis views of the base of the heart were noted. The stomach bubble position is on the left. 2. Atria and Veins: The superior and inferior vena cavae return to the right atrium without flow obstruction. At least one right and one left pulmonary veins drains normally to the left atrium. Both atria appear normal in size. There is large unobstructed right to left flow through the foramen ovale with the septum primum bowing into the left atrium. Possible ASD secundum is suggested on 2-D imaging, vs. stretched PFO. 3. Atrioventricular Valves: Normal morphology. There is no tricuspid or mitral valve stenosis or regurgitation. 4. Ventricles: Normal biventricular morphology, size, and wall thickness with normal systolic function. The right and left ventricular outflow tracts are widely patent without evidence of obstruction. 5. Ventricular septum: At least a moderate high cono-ventricular VSD is seen on color flow Doppler/2-D imaging. No obstruction to flow. 6. Semilunar Valves: There is no evidence of aortic or pulmonary valve stenosis or regurgitation. 7. 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 Limited short axis views of the base of the heart were noted. The main pulmonary artery and branch pulmonary arteries are confluent. The main pulmonary artery is smaller than the ascending on the available images, but appears adequate in size and aorta was mildly dilated in size. There are normal ductal and aortic arches with normal velocities by pulsed Doppler. 8. Pericardium/Pleural: No pericardial or pleural effusion noted. No abdominal ascites noted. 9. Heart Rhythm and Rate: The fetus was in regular heart rhythm throughout the entire study. DOPPLER VELOCITIES (m/s): The Doppler velocities across all intracardiac valves and ductal and aortic arches are normal. 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 Large atrial defect with unobstructed flow. RECOMMENDATIONS: 1. cardiology follow-up is suggested after discussion with Dr. Wick. This lesion should be able to deliver here in [place], since no urgent intervention will be needed for cardiac intervention. This will likely undergo semi-elective surgery in the first few months of life, since there is a larger atrial shunt and ventricular shunt. 2. Follow up with obstetrical provider as previously scheduled. 3. We offered outreach clinic visit this coming [facility] on 10/26/16 Procedure information: Study completion: The patient tolerated the procedure well. Patient status: Inpatient. Study date: Study date: October 15, 2016. Cardiac Anatomy: [facility] are accredited with the Intersocietal Accreditation Commission - Echocardiography. Prepared and Electronically Authenticated Kahlil Vásquez Confirmed 10/23/2016 09:22 Procedure Note Kahlil Vásquez MD - 10/23/2016 [facility] Cardiovascular Services Echocardiography Laboratory [address] [place] [address] Echocardiography Patient: [place] Study 1 Muriel Robert ID: Gender: F : 1985 Age: 31 Room: Study 10/15/2016 Pt Inpatient Date: Status: Study 03:18 PM [facility] #: [id number] Time: Ordering:Nam Quiñones Impressions: ECHOCARDIOGRAM: 1. 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 Limited short axis views of the base of the heart were noted. The stomach bubble position is on the left. 2. Atria and Veins: The superior and inferior vena cavae return to the right atrium without flow obstruction. At least one right and one left pulmonary veins drains normally to the left atrium. Both atria appear normal in size. There is large unobstructed right to left flow through the foramen ovale with the septum primum bowing into the left atrium. Possible ASD secundum is suggested on 2-D imaging, vs. stretched PFO. 3. Atrioventricular Valves: Normal morphology. There is no tricuspid or mitral valve stenosis or regurgitation. 4. Ventricles: Normal biventricular morphology, size, and wall thickness with normal systolic function. The right and left ventricular outflow tracts are widely patent without evidence of obstruction. 5. Ventricular septum: At least a moderate high cono-ventricular VSD is seen on color flow Doppler/2-D imaging. No obstruction to flow. 6. Semilunar Valves: There is no evidence of aortic or pulmonary valve stenosis or regurgitation. 7. 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 Limited short axis views of the base of the heart were noted. The main pulmonary artery and branch pulmonary arteries are confluent. The main pulmonary artery is smaller than the ascending on the available images, but appears adequate in size and aorta was mildly dilated in size. There are normal ductal and aortic arches with normal velocities by pulsed Doppler. 8. Pericardium/Pleural: No pericardial or pleural effusion noted. No abdominal ascites noted. 9. Heart Rhythm and Rate: The fetus was in regular heart rhythm throughout the entire study. DOPPLER VELOCITIES (m/s): The Doppler velocities across all intracardiac valves and ductal and aortic arches are normal. 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 Large atrial defect with unobstructed flow. RECOMMENDATIONS: 1. cardiology follow-up is suggested after discussion with Dr. Wick. This lesion should be able to deliver here in [place], since no urgent intervention will be needed for cardiac intervention. This will likely undergo semi-elective surgery in the first few months of life, since there is a larger atrial shunt and ventricular shunt. 2. Follow up with obstetrical provider as previously scheduled. 3. We offered outreach clinic visit this coming [facility] on 10/26/16 Procedure information: Study completion: The patient tolerated the procedure well. Patient status: Inpatient. Study date: Study date: October 15, 2016. Cardiac Anatomy: [facility] are accredited with the Intersocietal Accreditation Commission - Echocardiography. Prepared and Electronically Authenticated Kahlil Vásquez Confirmed 10/23/2016 09:22 us Nam Quiñones MD ORDERABLES Final Result Performing Organization Address City/State/[facility] Co de Phone Number INTERFACE SYSTEM Refer to clinic/hospital department documented in this encounter Visit Diagnoses Diagnosis Controlled diabetes mellitus type 1 without complications (CMS/HCC) documented in this encounter Care Teams Ornamenter Relationship Specialty Start Date End Date Wicho Graay DO [address] [phone] PCP - General Internal Medicine 01/21/18 documented as of this encounter
--- OUTSIDE RECORDS SUMMARY | 2024-12-30 19:01 | XMS_ITS | Clinical Summary ---
Author Organization [facility] Address [address] [place] [address] Care Team Providers Care Policyholder Information Clerk Name Role Phone Wicho Garay DO Primary Care Provide r Allergies Active Allergy Reactions Criticality Noted Date Comments Hydroxychloroquine Rash Low 02/27/2019 Medications vortioxetine (TRINTELLIX) 10 mg tablet Take 5 mg by mouth daily. Active blood sugar diagnostic Strip Test bs 3 times [id number] 100 Each 5 021 Active amitriptyline (ELAVIL) 25 mg tablet TAKE 1 TABLET BY MOUTH EVERY DAY FOR 3 NIGHTS THEN INCREASE TO TAKE 2 TABLETS BY MOUTH EVERY DAY AT BEDTIME Active Otezla 30 mg Tablet Take 1 Tablet by mouth 2 times daily. Active busPIRone (BUSPAR) 10 mg tablet Take 20 mg by mouth 2 times daily. Active Tri-VyLibra Lo 0.18/0.215/0.2 5 mg-25 mcg tablet Take 1 Tablet by mouth daily. 022 Active Insulin [place], Disposable, (BD Ultra-Fine Short Pen Needle) 31 gauge x 5/16 Needle Inject 4 x daily 200 Each 2 Active insulin pump cart,auto,BT-c ntr (Omnipod 5 G6 Intro Kit, Gen 5,) Cartridge As directed to regulate blood sugars. 1 Each Active naltrexone (DEPADE) 50 mg tablet Take 50 mg by mouth daily. Active buPROPion HCL (WELLBUTRIN SR) 150 mg Sustained Release 12 hour tablet Take 150 mg by mouth 2 times daily. Active Omnipod 5 G6 Pods, Gen 5, Cartridge CHANGE EVERY TWO DAYS 10 Each 1 024 Active Blood-Glucose Transmitter (Dexcom G6 Transmitter) Device Use as directed 1 Each 3 024 Active tretinoin (RETIN-A) 0.05 % Cream Apply A pea sized AMOUNT TO A clean DRY face nightly 024 Active vortioxetine (TRINTELLIX) 20 mg tablet Daily 023 Active insulin lispro (HumaLOG KwikPen Insulin) 100 unit/mL pen syringe USE DIRECTED WHEN NOT ON PUMP UP TO 50 UNITS PER DAY 15 mL 5 025 Active insulin glargine (Lantus Solostar U-100 Insulin) 100 unit/mL pen syringe INJECT 30 UNITS SUBCUTANEOUSLY TWICE DAILY 15 mL 4 025 Active hydrOXYzine HCL (ATARAX) 50 mg tablet Take 50 mg by mouth one time as needed. 025 Active insulin lispro (HumaLOG U-100 Insulin) 100 unit/mL vial INJECT UP TO 100 UNITS SUBCUTANEOUSLY EVERY DAY with insulin pump DIRECTED 30 mL 1 025 Active lisinopriL (PRINIVIL) 2.5 mg tablet TAKE 1 TABLET BY MOUTH DAILY. 30 Tablet 3 025 Active Omnipod 5 G6-G7 Pods, Gen 5, Cartridge CHANGE EVERY TWO DAYS 10 Each 1 025 Active Blood-Glucose Sensor (Dexcom G6 Sensor) Device USE DIRECTED 3 Each 3 025 Active lisinopriL (PRINIVIL) 2.5 mg tablet TAKE 1 TABLET BY MOUTH DAILY. 30 Tablet 3 025 2024 Discontinued Blood-Glucose Sensor (Dexcom G6 Sensor) Device USE DIRECTED 3 Each 3 025 2024 Discontinued(A lternate therapy prescribed) Omnipod 5 G6-G7 Pods, Gen 5, Cartridge CHANGE EVERY TWO DAYS 10 Each 1 025 2024 Discontinued Blood-Glucose Sensor (Dexcom G7 Sensor) Device Use to monitor glucose continuously. Replace sensor every 10 days. 9 Each 3 025 2024 Discontinued(R eorder) Blood-Glucose Sensor (Dexcom G7 Sensor) Device Use to monitor glucose continuously. Replace sensor every 10 days. 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 12/06/2017 Type 1 diabetes mellitus wit h proliferative retinopathy of left eye and macular edema 12/06/2017 Hypertension in , preeclampsia 12/07/19 17 cardiac anomaly affecting , antep artum 10/15/2016 Velamentous insertion of umbilical cord 09/03/19 17 Combined forms of age-related cataract of both e yes 09/29/2014 Traction detachment of retin a, s/p PPV 06/24/2014- right eye 05/28/2014 Encounters Date Type Department Care Team Description 12/27/2024 Refill [facility] [address] [place] [address] Jerome Ann PA 12/24/2024 Refill [facility] [address] [place] [address] Jerome Ann, PA 12/23/2024 External Device Data [facility] ABSTRACTION Provider, Abstract 12/22/2024 External Device Data [facility] ABSTRACTION Provider, Abstract 12/15/2024 Orders Only [facility] [address] [place] [address] Jermoe Ann PA 12/15/2024 Refill [facility] [address] [place] [address] Jerome Ann PA 12/08/2024 Refill [facility] [address] [place] [address] Jerome Ann PA 12/01/2024 External Device Data [facility] ABSTRACTION Provider, Abstract 11/26/2024 External Device Data [facility] ABSTRACTION Provider, Abstract 10/15/2024 Refill [facility] [address] [facility] [address] [place] [address] Jerome Ann PA 10/06/2024 External Device Data [facility] ABSTRACTION Provider, Abstract 10/05/2024 Refill [facility] [address] [facility] [address] [place] [address] Jerome Ann PA from Last 3 Months Immunizations Immunization Administration Dates Next Due Influenza Seasonal Unspecified Formulation IM ,04/22/2014 Family History Medical History Relation Name Comments Healthy Father Healthy Mother Cataract Other Relation Name Status Comments Father Mother Other Social History Tobacco Use Types Packs/Day Years Used Date Smoking Tobacco: Never Smokeless Tobacco: Never Tobacco Cessation:Counseling Given: Not Answered Alcohol Use Standard Drinks/Week Comments No 0 (1 standard drink = 0.6 oz pur e alcohol) Comments No Sex and Gender Information Value Date Recorded Sex Assigned at Not on file Legal Sex Female 3:08 PM [employer]PER[employer]ORY LIFEGU[employer] Gender Identity Not on file Sexual Orientation Not on file Last Filed Vital Signs Vital Sign Reading Time Taken Comments Blood Pressure 118/76 09/14/2024 8:25 AM CDT Pulse 74 09/14/2024 8:25 AM CDT Temperature 36.3 C (97.3 F) 01/23/2018 8:24 AM CDT Respiratory Rate 18 01/23/2018 8:24 AM CDT Oxygen Saturation 99% 05/07/2024 9:03 AM CDT Inhaled Oxygen Concentration - - Weight 76.2 kg (168 lb) 09/14/2024 8:25 AM CDT Height 175.3 cm (5' 9 ) 09/14/2024 8:25 AM CDT Body Mass Index 24.81 09/14/2024 8:25 AM CDT Plan of Treatment Upcoming Encounters Date Type Department Care Team (Late st Contact Info) Description 03/05/2025 9:00 AM CDT Office Visit [facility] [address] [facility] [address] [place] [address] Jerome Ann PA [address] [place] [address] 05/12/2025 10:10 AM SUPERVISORY LIFEGUARD Office Visit [facility] [place] [address] [place] [address] Airam Arellano MD [address] [place] [address] Health Maintenance Due Date Last Done Comments DTAP/TDAP/TD VACCINES (1 - Tdap) 2003 HEPATITIS B VACCINES (1 of 3 - 19+ 3-dose series) 2003 HPV/Cotest (21-29) 2005 CERVICAL CANCER SCREENING 2014 HPV/Cotest (30-65) 2014 PAP SMEAR 2014 DIABETES ANNUAL FOOT EXAM 10/14/20212020, 06/15/2020, 02/17/2020, Additional history exists INFLUENZA VACCINE (#1) 2024 04/24/2017, 2013 COVID-19 Vaccine ( season) 2024 05/13/2021, 07/29/2020, 06/30/2020 BREAST CANCER SCREENING 2024 DIABETES HBA1C Q 6 MONTHS 10/27/20242023, 12/24/2023, 08/26/2023, Additional history exists LDL CHOLESTEROL ANNUAL 04/28/2025 , 12/24/2023, 12/24/2023, Additional history exists DIABETES MICROALBUMIN ANNUAL SCREEN 05/07/2025 05/07/2024, 04/09/2023, 09/05/2022, Additional history exists DIABETES ANNUAL RETINAL EXAM 05/12/2025 05/12/2024, 05/12/2024, 05/12/2024, Additional history exists HPV VACCINES Aged Out No longer eligi ble based on patient's age to complete this topic Procedures Procedure Name Priority Date/Time Associated Diagnosis Comments MICROALBUMIN/CREATIN INE RATIO, RANDOM UR Routine 05/07/2024 12:00 AM CDT Type 1 diabetes mellitus with proliferative retinopathy of right eye without macular edema (CMS/HCC) LIPID PANEL Routine 04/28/2024 10:49 AM CDT Type 1 diabetes mellitus with proliferative retinopathy of right eye without macular edema (CMS/HCC) HEMOGLOBIN A1C Routine 04/28/2024 10:49 AM CDT Type 1 diabetes mellitus with proliferative retinopathy of right eye without macular edema (CMS/HCC) RETINAL PHOTO COAGULATION LEFT Routine 04/04/2016 4:47 PM CDT Proliferative diabetic retinopathy(362.02) (CMS/[facility]) from Last 3 Months or Most Recently Relevant to Health Maintenance Results * MICROALBUMIN/CREATININE RATIO, RANDOM UR (05/07/2024 12:00 AM CDT) Creatinine, Urine 34 20 - 275 mg/dL [facility] MICROALBUMIN, URINE 0.6 See Note: mg/dL [facility] Comment: Reference Range: Reference Range Not established MICROALBUMIN/CREAT RATIO, UR 18 <30 mg/g creat [facility] Comment: The ADA defines abnormalities in albumin excretion as follows: Albuminuria Category Result (mg/g creatinine) Normal to Mildly increased <30 Moderately increased 30-299 Severely increased > OR = 300 The ADA recommends that at least two of three specimens collected within a 3-6 month period be abnormal before considering a patient to be within a diagnostic category. FASTING:NO FASTING: NO Test Performed at: [facility] [address] [place] [address] Casandra Morris MD Urine URINE SPECIMEN OBTAINED BY CLEAN CATCH PROCEDURE / Unknown 05/07/2024 05/07/2024 8:55 AM CDT us Jerome MCKEON URINE ORDERABLES Final Resul t [facility] [phone] [facility] [address] [place] [address] * (ABNORMAL) HEMOGLOBIN A1C (04/28/2024 10:49 AM CDT) Pathologist [facility] HEMOGLOBIN A1C 9.0(H) <5.7 % of total Hgb [facility] Comment: For someone without known diabetes, a hemoglobin A1c value of 6.5% or greater indicates that they may have diabetes and this should be confirmed with a follow-up test. For someone with known diabetes, a value <7% indicates that their diabetes is well controlled and a value greater than or equal to 7% indicates suboptimal control. A1c targets should be individualized based on duration of diabetes, age, comorbid conditions, and other considerations. Currently, no consensus exists regarding use of hemoglobin A1c for diagnosis of diabetes for children. ESTIMATED AVERAGE GLUCOSE (MG/DL) 212 mg/dL [facility] ESTIMATED AVERAGE GLUCOSE (MMOL/L) 11.7 mmol/L [facility] Comment: FASTING:NO FASTING: NO Test Performed at: [facility] [address] [facility] [place] [address] Casandra Morris MD Blood 04/28/2024 10:4 9 AM CDT 04/28/2024 10:50 AM CDT us Jerome MCKEON CHEMISTRY ORDERABLES Final R esult [facility] [phone] [facility] [address] [facility] [place] [address] * (ABNORMAL) LIPID PANEL (04/28/2024 10:49 AM CDT) [facility] CHOLESTEROL 194 <200 mg/dL [facility] HDL 81 > OR = 50 mg/dL [facility] TRIGLYCERIDE 191(H) <150 mg/dL [facility] LDL CALCULATED 84 mg/dL (calc) [facility] Comment: Reference range: <100 Desirable range <100 mg/dL for primary prevention; <70 mg/dL for patients with CHD or diabetic patients with > or = 2 CHD risk factors. LDL-C is now calculated using the Avery-Mcdonald calculation, which is a validated novel method providing better accuracy than the Friedewald equation in the estimation of LDL-C. Avery SS et al. OC. 2013;310(19): 3836-2094 (http://education.ME911.Your Survival/faq/OCK748) CHOL/HDL RATIO 2.4 <5.0 (calc) [facility] NON-HDL CHOLESTEROL 113 <130 mg/dL (calc) [facility] Comment: For patients with diabetes plus 1 major ASCVD risk factor, treating to a non-HDL-C goal of <100 mg/dL (LDL-C of <70 mg/dL) is considered a therapeutic option. Test Performed at: [facility] [address] [place] [address] Joe Metz Blood 04/28/2024 10:4 9 AM CDT 04/28/2024 10:50 AM CDT Jerome MCKEON CHEMISTRY ORDERABLES Final R esult [facility] [phone] [facility] [address] [place] [address] * RETINAL PHOTO COAGULATION LEFT (04/04/2016 4:47 PM CDT) Narrative INTERFACE SYSTEM - 04/04/2016 4:47 PM CDT Airam Arellano MD 04/04/2016 4:47 PM Laser Procedure Note Muriel Alexis is a 31 y.o. female Time Out Protocol: Proper Timeout protocol was performed. All patient information and surgical plan was confirmed and agreed upon by Dr. Arellano and the surgical team. Eye: left eye Anesthesia: topical Diagnosis: diabetic retinopathy Procedure: Panretinal photocoagulation Laser: Marzena Complications: no Findings: Patched Eye: no Parameters for indirect PRP: Beam Size: indirect Power: 500-550 mwatts Duration: 0.1 seconds Count: 755 Lens: Double Aspheric 28D Appropriate ocular protective goggles were used by all persons present in room. Patient was instructed to call if there is excessive pain that is not relieved with Extra Strength Tylenol and frequent Artificial Tears Procedure Note Conversion, Auto Data - 10/11/2021 Airam Arellano MD 04/04/2016 4:47 PM Laser Procedure Note Muriel Alexis is a 31 y.o. female Time Out Protocol: Proper Timeout protocol was performed. All patient information and surgical plan was confirmed and agreed upon by Dr. Arellano and the surgical team. Eye: left eye Anesthesia: topical Diagnosis: diabetic retinopathy Procedure: Panretinal photocoagulation Laser: Marzena Complications: no Findings: Patched Eye: no Parameters for indirect PRP: Beam Size: indirect Power: 500-550 mwatts Duration: 0.1 seconds Count: 755 Lens: Double Aspheric 28D Appropriate ocular protective goggles were used by all persons present in room. Patient was instructed to call if there is excessive pain that is not relieved with Extra Strength Tylenol and frequent Artificial Tears X Abbie Arellano MD OPH OTHER Final Result Performing Organization Address City/State/[facility] de Phone Number INTERFACE SYSTEM Refer to clinic/hospital department from Last 3 Months or Most Recently Relevant to Health Maintenance Insurance [facility] OUT OF STATE Care Teams Policyholder Information Clerk Relationship Specialty Start Date End Date Wicho Garay DO [address] [id number] PCP - General Internal Medicine 01/21/18
--- OUTSIDE RECORDS SUMMARY | 2024-12-30 19:01 | XMS_ITS | Encounter Summary ---
Author Organization [facility] Address [address] [place] [address] Care Team Providers Care Instrument Inspector Name Role Phone Wicho Garay DO Primary Care Provide r Encounter Details Date Type Department Care Team (Late st Contact Info) Description 08/22/[address] [facility] Plastic Surgery 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 She desires liposuction. We discussed the procedure and risks of infection, bleeding, and irregular contour. PAST MEDICAL HISTORY: Type 1 diabetes. PAST SURGICAL HISTORY: None reported. MEDICATIONS: Humalog and Lantus. ALLERGIES: No known drug allergies. REVIEW OF SYSTEMS: Negative. PHYSICAL EXAMINATION: GENERAL: She is an alert white female in no acute distress. HEENT: Within normal limits. LUNGS: Clear to auscultation. HEART: Regular rate and rhythm. ABDOMEN: Soft and benign. Examination of her abdominal fatty tissue revealed an abundance of fatty tissue but an abdominal wall that was not necessarily protuberant. The remainder of the physical examination was unremarkable. IMPRESSION: Excess abdominal fatty tissue. PLAN: Liposuction. Nasim Sharma M.D. Plastic & Reconstructive Surgery Electronically Signed by Nasim Sharam M.D. 08/27/2007 12:37 , 4:23 P A, 670 Document #: [id number] cc: GENERALIST * Nasim Sharma - 08/22/2007 12:00 AM CST 09/11/2007 Yecenia Macias [phone] : 1985 SUBJECTIVE: She was scheduled for liposuction in the [facility] today. She is diabetic and on the way to the clinic, she ate a muffin. It was felt that it was in her best interest to cancel the surgery for today and reschedule for a time when she could be in NPO. Nasim Sharma M.D. Plastic & Reconstructive Surgery Electronically Signed by Nasim Sharma M.D. 09/16/2007 06:32 , P, 530 , Document #: [id number], cc: documented in this encounter Plan of Treatment Not on file documented as of this encounter Visit Diagnoses Not on filedocumented in this encounter Care Teams Instrument Inspector Relationship Specialty Start Date End Date Wicho Garay DO [address] [address] PCP - General Internal Medicine 01/21/18 documented as of this encounter
--- OUTSIDE RECORDS SUMMARY | 2024-12-30 19:01 | XMS_ITS | Clinical Summary ---
Author Organization [facility] Address [address] [place] [address] Care Team Providers Care Stenographic Court Reporter Name Role Phone Wicho Garay Primary Care Provide r Allergies Active Allergy Reactions Criticality Noted Date Comments Hydroxychloroquine Rash Low 02/27/2019 Medications busPIRone (BUSPAR) 15 mg Tablet 15 mg 2 times daily . Active vortioxetine (TRINTELLIX) 10 mg tablet Take 5 mg by mouth daily. Active Insulin Calhoun, Disposable, (BD CHRISTIN 2ND GEN PEN NEEDLE) 32 gauge x 5/32 Needle Use up to 3 times daily 100 Each 6 05/07/20 19 Active Blood-Glucose Sensor (Dexcom G6 Sensor) Device Use as directed 3 Each 3 12/24/19 20 Active Blood-Glucose Transmitter (Dexcom G6 Transmitter) Device Use as directed 1 Each 3 12/24/19 20 Active insulin lispro (HumaLOG U-100 Insulin) 100 unit/mL vial USE UP TO 100 UNITS DAILY WITH INSULIN PUMP DIRECTED 30 mL 5 05/02/20 20 Active insulin glargine (Lantus Solostar U-100 Insulin) 100 unit/mL pen syringe INJECT 30 UNITS SUBCUTANEOUSLY TWICE DAILY 15 mL 4 06/22/20 20 Active blood sugar diagnostic (OneTouch Ultra Blue Test Strip) Strip Test bs 3 times E10.3591 100 Each 5 10/05/19 21 Active lisinopriL (PRINIVIL) 2.5 mg tablet Take 1 Tablet (2.5 mg) by mouth daily. 30 Tablet 4 10/15/19 21 Active Hospital, Clinic, or Other Facility Administered Medication Ordered Dose Route Frequency Start Date End Date Status bevacizumab (AVASTIN) injection 1.25 mgIndications:Vitreous hemorrhage, left (CMS/HCC),Type 1 diabetes mellitus with proliferative retinopathy of left eye and macular edema (CMS/HCC) 1.25 mg Intraocular 12/06/2017 Active Active Problems Problem Noted Date Diagnosed Date Vitreous hemorrhage, left, s/p PPV 01/23/201807/2017 Type [...] a, s/p PPV 06/24/2014- right eye 05/28/2014 Immunizations Immunization Administration Dates Next Due Influenza [...] on file 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 Gender Identity Not on file Sexual Orientation Not on file Occupation Industry Job Start Date Job End Date Not on file Not on file Not on file Not on file Last Filed Vital Signs Vital Sign Reading Time Taken Comments Blood Pressure 120/76 10/14/2020 2:44 PM CDT Pulse 64 10/14/2020 2:44 PM CDT Temperature 36.3 C (97.3 F) 01/23/2018 8:24 AM CDT Respiratory Rate 18 01/23/2018 8:24 AM CDT Oxygen Saturation 98% 01/23/2018 8:24 AM CDT Inhaled Oxygen Concentration - - Weight 83.5 kg (184 lb) 10/14/2020 2:44 PM CDT Height 175.3 cm (5' 9 ) 10/14/2020 2:44 PM CDT Body Mass Index 27.17 10/14/2020 2:44 PM CDT Plan of Treatment Health Maintenance Due Date Last Done Comments DTAP/TDAP/TD VACCINES (1 - Tdap) 2003 HEPATITIS B VACCINES (1 of 3 - 19+ 3-dose series) 2003 HPV/Cotest (21-29) 2005 CERVICAL CANCER SCREENING 2014 HPV/Cotest (30-65) 2014 PAP SMEAR 2014 LDL CHOLESTEROL ANNUAL 12/22/2020 0, 02/05/2019, 02/05/2019, Additional history exists DIABETES ANNUAL RETINAL EXAM 05/03/2021 05/03/2020, 05/03/2020, 05/03/2020, Additional history exists DIABETES HBA1C Q 6 MONTHS 08/24/20212020, 10/14/2020, 06/06/2020, Additional history exists DIABETES ANNUAL FOOT EXAM 10/14/20212020, 06/15/2020, 02/17/2020, Additional history exists DIABETES MICROALBUMIN ANNUAL SCREEN 10/14/2021 10/14/2020, 10/04/2020, 06/06/2020, Additional history exists INFLUENZA VACCINE (#1) 2024 8, 04/24/2017, 04/22/2014 BREAST CANCER SCREENING 2024 HPV VACCINES Aged Out No longer eligi ble based on patient's age to complete this topic Procedures Procedure Name Priority Date/Time Associated Diagnosis Comments HEMOGLOBIN A1C Routine 02/21/2021 1:35 PM CDT Type 1 diabetes mellitus with hyperglycemia (CMS/HCC) MICROALBUMIN/CREATININE RATIO, RANDOM UR Routine 10/14/2020 3:40 PM CDT Type 1 diabetes mellitus with hyperglycemia (CMS/HCC) LIPID PANEL Routine 12/23/2019 PA TREATMENT EXTENSIVE RETINOPATHY PHOTOCOAGULATION Routine 04/04/2016 4:47 PM CDT Proliferative diabetic retinopathy(362.02), s/p PPV 06/24/2014 OD- both eyes from Last 3 Months or Most Recently Relevant to Health Maintenance Results * (ABNORMAL) HEMOGLOBIN A1C (02/21/2021 1:35 PM CDT) HEMOGLOBIN A1C 8.0(H) <5.7 % of total Hgb [facility] Comment: For someone without known diabetes, a [...] A1c for diagnosis of diabetes for children. FASTING:NO FASTING: NO Test Performed at: [facility] [address] [place] [address] Chu Veliz D.O., MPH Blood 02/21/2021 1:35 PM CDT 02/21/2021 1:35 PM CDT us Jerome MCKEON CHEMISTRY ORDERABLES Final R esult [facility] [address] [place] [address] * (ABNORMAL) MICROALBUMIN/CREATININE RATIO, RANDOM UR (10/14/2020 3:40 PM CDT) Pathologist [facility] MICROALBUMIN, URINE 4.7 No Reference Range mg/dL 10/14/2020 4:49 PM CDT [facility] CREATININE, URINE 41.7 29.0 - 226.0 mg/dL 10/14/2020 4:49 PM CDT [facility] Comment:Reference Range vari es with fluid intake and diet. MICROALBUMIN/ CREAT RATIO, UR 112.7(H) <25.0 mg/g 10/14/2020 4:49 PM CDT [facility] Urine URINE SPECIMEN OBTAINED BY CLEAN CATCH PROCEDURE / Unknown Collection / Unknown 10/14/2020 3:40 PM CDT 10/14/2020 3:54 PM CDT Narrative [facility] - 10/14/2020 4:49 PM CDT Condition Microalbumin/Creat ratio Normal Males <17 Normal Females <25 Microalbuminuria Males 17-299 Microalbuminuria Females 25-299 Overt proteinuria >=300 Jerome MCKEON URINE ORDERABLES Final Resul t [facility] CLIA# [id number] [address] [place] [address] * LIPID PANEL (12/23/2019) ABSTRACTED CHOLESTEROL 154 EXTERNAL LAB ABSTRACTED TRIGLYCERIDE 75 EXTERNAL LAB ABSTRACTED HDL 56 EXTERNAL LAB ABSTRACTED LDL CALCULATED 83 EXTERNAL LAB CHOLESTEROL EXTERNAL LAB TRIGLYCERIDE EXTERNAL LAB HDL EXTERNAL LAB LDL CALCULATED EXTERNAL LAB Blood 12/23/2019 us Abstract Spg Provider CHEMISTRY ORDERABLES Final Result Performing Organization Address [facility] Co de Phone Number EXTERNAL LAB * PA TREATMENT EXTENSIVE RETINOPATHY PHOTOCOAGULATION (04/04/2016 4:47 PM CDT) Narrative [facility] - 04/04/2016 4:47 PM CDT Airam Arellano MD 04/04/2016 4:47 PM Laser Procedure Note Yecenia Alexis is a 31 y.o. female Time [...] Extra Strength Tylenol and frequent Artificial Tears us X Abbie Arellano MD OPHTH OTHER Final Result [facility] CLIA# [id number] [address] [place] [address] from Last 3 Months or Most Recently Relevant to Health Maintenance Insurance [facility] PL[facility] Advance Directives For more information, please contact: [phone] * Full Code (Latest Code Status on File) Date Activated Date Inactivated Comments 01/23/2018 6:32 AM 01/23/2018 10:46 AM * Full Code Date Activated Date Inactivated Comments 12/24/2016 8:50 PM 12/26/2016 1:20 PM * Full Code Date Activated Date Inactivated Comments 12/23/2016 7:56 PM 12/24/2016 8:50 PM * Full Code Date Activated Date Inactivated Comments 12/06/2016 4:37 PM 12/23/2016 7:56 PM Care Teams Stenographic Court Reporter Relationship Specialty Start Date End Date Wicho Garay DO [address] [phone] PCP - General Internal Medicine 01/21/18
--- OUTSIDE RECORDS SUMMARY | 2024-12-30 19:01 | XMS_ITS | Encounter Summary ---
Author Organization [facility] Address [address] [place] [address] Care Team Providers Care Counter Sales Person Name Role Phone Wicho Garay DO Primary Care Provide r Reason for Visit * Reason Onset Date Comments Information 10/01/2016 Encounter Details Date Type Department Care Team (Late st Contact Info) Description 10/01/2016 Telephone [facility] Ran Rene Tumacacori [address] [place] [phone] Jerome Ann PA [address] 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 Gender Identity Not on file Sexual Orientation Not on file Occupation Industry Job Start Date Job End Date Not on file Not on file Not on file Not on file documented as of this encounter Miscellaneous Notes * Telephone Encounter - Karla Jones - 10/01/2016 11:14 AM CDT Please see media tab for blood glucose log documented in this encounter Plan of Treatment Not on file documented as of this encounter Visit Diagnoses Not on filedocumented in this encounter Care Teams Counter Sales Person Relationship Specialty Start Date End Date Wicho Garay DO [address] [phone] PCP - General Internal Medicine 01/21/18 documented as of this encounter
--- OUTSIDE RECORDS SUMMARY | 2024-12-30 19:01 | XMS_ITS | Encounter Summary ---
Author Organization [facility] Address 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 [address] 05/12/2025 10:10 AM HEALTH CARE LAW SPECIALIST Office Visit [facility] [place] [address] [facility] [address] [place] [address] Airam Arellano MD [address] [place] [address] documented as of this encounter Visit Diagnoses Not on filedocumented in this encounter Care Teams Trip Rider Relationship Specialty Start Date End Date Wicho Garay DO [address] [phone] PCP - General Internal Medicine 01/21/18 documented as of this encounter
--- OUTSIDE RECORDS SUMMARY | 2024-12-30 19:01 | XMS_ITS | Encounter Summary ---
Author Organization [facility] Address [address] [place] [address] Care Team Providers Care Plastics Scientist Name Role Phone Wicho Garay DO Primary Care Provide r Encounter Details Date Type Department Care Team (Late st Contact Info) Description 12/08/2016 Ophth Exam [facility] [address] [place] [phone] Jesus Fong, [place] NO ADDRESS ON FILE Social History Tobacco Use Types Packs/Day Years Used Date Smoking Tobacco: Never Smokeless Tobacco: Never Alcohol Use Standard Drinks/Week Comments No 0 (1 standard drink = 0.6 oz pur e alcohol) Comments Yes Sex and Gender Information Value Date Recorded Sex Assigned at Not on file 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
--- NOTE | 2024-12-30 19:05 | ECG_ITS ---
[facility] Date: 2024-12-30 Pat Name: Yecenia Nuñez Department: Room: Gender: Female Operator: : 1985 Requested By: Partha Chang Order Number: [id number] Reading MD: Measurements Intervals [place] Rate: 91 P: 55 NV: 145 QRS: 63 QRSD: 77 T: 46 QT: 352 QTc: 434 Interpretive Statements SINUS RHYTHM No previous ECG available for comparison [email or web address]
[2024-12-30 19:21] LABS: Glucose Point of Care 150 mg/dL (70-110)
[2024-12-30 19:27] LABS: Basophils % 0.2 %; Eosinophils # 0.2 10^3/uL (0.0-0.8); Eosinophils % 1.3 %; Hematocrit 49.6 % (36-47); Lymphocytes # 2.4 10^3/uL (0.8-4.8); Lymphocytes % 13.2 %; Mean Corpuscular HGB Conc 31.3 g/dL (30-55); Mean Corpuscular Hemoglobin 26.8 pg (27-33); Mean Corpuscular Volume 85.7 fl (85-98); Mean Platelet Volume 10.1 fL (7.4-10.4); Monocytes # 0.8 10^3/uL (0.2-0.9); Monocytes % 4.1 %; Neutrophils # 14.85 10^3/uL (1.8-7.7); Neutrophils % 80.7 %; Nucleated Red Blood Cells % 0 %; Platelet Count 332 10^3/cmm (157-399); Red Blood Count 5.79 10^6/uL (3.85-5.65); Red Cell Distribution Width 14.9 % (12.1-15.1); White Blood Count 18.38 10^3/uL (3.29-11.43)
[2024-12-30] MEDS: sodium chloride 0.9% 1,000 ML 999 ML IV (19:27)
[2024-12-30 19:28] LABS: Glucose Point of Care 130 mg/dL (70-110)
[2024-12-30 19:43] LABS: Ketone (Acetest) Serum Negative (Negative)
[2024-12-30 19:51] LABS: Alanine Aminotransferase 11 U/L (0-33); Albumin Level 3.9 g/dL (3.5-5.2); Alkaline Phosphatase 79 U/L (35-105); Anion Gap 19.8 (5-19); Aspartate Amino Transferase 14 U/L (0-32); Blood Urea Nitrogen 8 mg/dL (6-20); Calcium 9.3 mg/dL (8.5-10.5); Carbon Dioxide 22 mmol/L (22-29); Chloride 101 mmol/L (98-107); Creatinine Clr Calc Pharmacy 116.5593; Globulin 3.3 g/dL (1.3-4.6); Glomerular Filtration Rate 92.7 mL/min (90-130); Glucose 145 mg/dL (65-115); Osmolality Calculated 289 mOsm/kg (285-295); Potassium 3.8 mmol/L (3.5-5.1); Sodium 139 mmol/L (136-145); Total Bilirubin 0.5 mg/dL (0.15-1.2); Total Protein 7.2 g/dL (6.6-8.7)
--- NOTE | 2024-12-30 19:54 | ED_ITS ---
HPI - Nausea/Vomiting/Diarrhea 2 General: Chief complaint: Nausea/Vomiting/Diarrhea Stated complaint: type 1 dizzy, poss dka nurse Time Seen by Provider: 12/30/24 19:03 History of Present Illness: Well appearing 39 yr old female with type 1 DM presents with acute onset of nausea, vomiting, and diarrhea, initially unable to stand without vomiting. Symptoms improved the following day but recurred, with persistent weakness and lightheadedness, especially on standing. Reports significant sweating when standing and difficulty remaining upright during check-in. Denies fever, cough, sore throat, dysuria, frequency, or headache. No abdominal pain at present, but had some earlier with GI symptoms. Blood glucose reportedly stable at 162 mg/dL during episode, though patient notes overall poor glycemic control (A1C 9.1). No history of pancreatitis or gallbladder disease. Able to tolerate some oral intake, though not fully. No recent travel or sick contacts mentioned. Related Data Home Medications ?Medication ?Instructions ?Recorded ?Confirmed insulin lispro 100 unit/mL See Rx Instructions SUBCUT .COMPLEX 09/11/19 11/27/24 subcutaneous solution (Humalog U-100 Insulin) lisinopril 2.5 mg tablet 2.5 mg PO DAILY 10/27/20 blood-glucose sensor (Dexcom G6 #3 ea 03/14/22 5 Sensor device) blood-glucose transmitter (Dexcom #1 ea 10/30/2411/27 G6 Transmitter device) ferrous gluconate 324 mg (38 mg mg PO 10/30/24 5 iron) tablet insulin glargine 100 unit/mL (3 unit SUBCUT 10/30/24 0 11/27/24 mL) subcutaneous pen (Lantus Solostar U-100 Insulin) insulin lispro 100 unit/mL SUBCUT 10/30/24 11/27/24 subcutaneous pen insulin pump cart,auto,BT,G6/7 #5 ea 10/30/24 11/27/24 (Omnipod 5 G6-G7 Pods (Gen 5) subcutaneous cartridge) Previous Rx's ?Medication ?Instructions ?Recorded norgestimate 0.18 mg/0.215mg/0.25 See Rx Instructions .Route 04/07/24 mg-ethinyl estradiol 0.025 mg .COMPLEX #84 tabs tablet (Tri-VyLibra Lo) bupropion HCl 300 mg 24 hr tablet, 300 mg PO QAM #30 t abs 05/20/24 extended release (Wellbutrin XL) buspirone 10 mg tablet 20 mg (2 x 10 mg) PO BID #12 0 tabs 05/20/24 naltrexone 50 mg tablet 50 mg PO DAILY #30 tabs 05/08 09/28 vortioxetine 20 mg tablet 20 mg PO DAILY #30 tabs 05/08 09/28 (Trintellix) hydroxyzine HCl 50 mg tablet 100 mg (2 x 50 mg) PO .HS PRN 08/19/24 insomnia #60 tabs atorvastatin 20 mg tablet (Lipitor) 20 mg PO DAILY 1 m onth #30 tabs 10/30/24 ondansetron 4 mg disintegrating 4 mg PO Q8H PRN nausea and 12/30/24 tablet vomiting 5 days #14 tabs Allergies Allergy/AdvReac Type Severity Reaction Status Date / Time hydroxychloroquine (From Allergy rash Verified 12/30/24 19:09 Plaquenil) PFSH ED 2 PFSH: Medical History Persistent headaches Encounter to establish care Left ear pain Psychiatric care No pertinent past medical history neghx: htn,thyroid,dvt/pe PCP: Dr. 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 [place] [facility] History of eye surgery (~12/2017) 12/2017 - Left eye surgery - Performed at [facility] in [place], [place] 2013 - Right eye surgery - Performed at [facility] in [place], [place] Family History Grandfather Breast cancer maternal--dx age 60 Denies family history of Colon cancer Ovarian cancer Diabetes Heart disease Hypercholesteremia Hypertension Uterine cancer Thyroid disease Stroke Social History Smoking and tobacco/nicotine status: never used tobacco/nicotine Second hand smoke exposure: No Alcohol intake: never Substance/Drug Use: never Physical Exam 2 Const: COMMON NORMALS: no acute distress, patient oriented x3 and alert HENMT: COMMON NORMALS: normocephalic and atraumatic HEAD & SCALP: n ormocephalic and atraumatic Eye: COMMON NORMALS: Equal, round and reactive pupils present, EOMs intact bilaterally and no scleral icterus PUPIL: Yes Equal, round and reactive pupils present Resp: COMMON NORMALS: normal respiratory effort and No retractions Cardio: COMMON NORMALS: regular rhythm and No murmurs present (Cardio) R HYTHM: regular rhythm OTHER: borderline tachycardic in upper 90's GI: COMMON NORMALS: Normal to inspection, nondistended, normoactive bowel sounds present, Soft to palpation and non-tender PALPATION: Yes Soft to palpation Neuro: COMMON NORMALS: patient oriented x3 SENSORIUM/ORIENTATION: Yes alert Skin: COMMON NORMALS: no rashes or lesions noted GENERAL SKIN EXAM: no rashes or lesions noted Course 2 Vital Signs: Vital signs: Vital Signs Temperature 97.6 F 12/30/24 19:05 Pulse Rate 103 H 12/30/24 22:13 Respiratory Rate 17 12/30/24 19:09 Blood Pressure 143/9 12/30/24 22:13 Pulse Oximetry 100 12/30/24 22:13 Oxygen Delivery Me thod Room Air 12/30/24 19:05 MDM - Nausea/Vomiting/Diarrhea Medical Decision Making In summary, patient is a generally well-appearing 3-year-old female seen for nausea, vomiting, and diarrhea which has caused her to have some lightheadedness. She has not passed out. EKG is reassuring. Labs do not show evidence of DKA or metabolic acidosis despite her type 1 diabetes status. After receiving IV fluids, she no longer feels orthostatic and orthostatic vital signs are negative. With Zofran, she is able to eat and drink. White blood cell count is elevated but without specific pain in the abdomen, cough, dysuria, or other sign of infection, I do not feel she requires antibiotics. I strongly suspect viral enteritis causing her nausea, vomiting, and diarrhea. She will be discharged in stable and improved condition with a course of Zofran and follow- up primary care Lab Data 12/30/24 19:13 12/30/24 19:13 Laboratory Results WBC 18.38 10^3/uL (3.29-11.43) H 12/30/24 19:13 RBC 5.79 10^6/uL (3.85-5.65) H 12/30/24 19:13 Hgb 15.50 g/dL (11.27-16.99) 12/30/24 19:13 Hct 49.6 % (36-47) H 12/30/24 19:13 MCV 85.7 fl (85-98) 12/30/24 19:13 MCH 26.8 pg (27-33) L 12/30/24 19:13 MCHC 31.3 g/dL (30-55) 12/30/24 19:13 RDW 14.9 % (12.1-15.1) 12/30/24 19:13 Plt Count 332 10^3/cmm (157-399) 12/30/24 19:13 MPV 10.1 fL (7.4-10.4) 12/30/24 19:13 Neut % (Auto) 80.7 % 12/30/24 19:13 Lymph % (Auto) 13.2 % 12/30/24 19:13 [place] % (Auto) 4.1 % 12/30/24 19:13 Eos % (Auto) 1.3 % 12/30/24 19:13 Baso % (Auto) 0.2 % 12/30/24 19:13 Neut # (Auto) 14.85 10^3/uL (1.8-7.7) H 12/30/24 19:13 Lymph # (Auto) 2.4 10^3/uL (0.8-4.8) 12/30/24 19:13 [place] # (Auto) 0.8 10^3/uL (0.2-0.9) 12/30/24 19:13 Eos # (Auto) 0.2 10^3/uL (0.0-0.8) 12/30/24 19:13 Baso # (Auto) 0.0 10^3/uL (0.0-0.1) 12/30/24 19:13 Nucleated RBC % (auto) 0 % 12/30/24 19:13 Nucleated RBCs # 0.0 /100WBC 12/30/24 19:13 Sodium 139 mmol/L (136-145) 12/30/24 19:13 Potassium 3.8 mmol/L (3.5-5.1) 12/30/24 19:13 Chloride 101 mmol/L (98-107) 12/30/24 19:13 Carbon Dioxide 22 mmol/L (22-29) 12/30/24 19:13 Anion Gap 19.8 (5-19) H 12/30/24 19:13 BUN 8 mg/dL (6-20) 12/30/24 19:13 Creatinine 0.7 mg/dL (0.5-0.9) 12/30/24 19:13 GFR Calculation 92.7 mL/min (90-130) 12/30/24 19:13 Glucose 145 mg/dL (65-115) H 12/30/24 19:13 POC Glucose 130 mg/dL (70-110) H 12/30/24 19:25 Calculated Osmolality 289 mOsm/kg (285-295) 12/30/24 19:13 Calcium 9.3 mg/dL (8.5-10.5) 12/30/24 19:13 Total Bilirubin 0.5 mg/dL (0.15-1.2) 12/30/24 19:13 AST 14 U/L (0-32) 12/30/24 19:13 ALT 11 U/L (0-33) 12/30/24 19:13 Alkaline Phosphatase 79 U/L (35-105) 12/30/24 19:13 Total Protein 7.2 g/dL (6.6-8.7) 12/30/24 19:13 Albumin 3.9 g/dL (3.5-5.2) 12/30/24 19:13 Globulin 3.3 g/dL (1.3-4.6) 12/30/24 19:13 Serum Ketones Negative (Negative) 12/30/24 19:13 All radiology interpretation(s) finalized by discharge EKG Data EKG 1: Interpretation: Time?1901?normal sinus rhythm, rate of 91, no ST segment elevation or depression, no T wave inversions, QTc = 401 Discharge Plan Discharge Patient Disposition: Home Clinical Impression: Postural dizziness with near syncope, Nausea vomiting and diarrhea Condition: Stable Prescriptions: New ondansetron 4 mg tablet,disintegrating 4 mg PO Q8H PRN (Reason: nausea and vomiting) 5 Days Qty: 14 0RF No Action insulin lispro [Humalog U-100 Insulin] 100 unit/mL solution See Rx Instructions SUBCUT .COMPLEX Rx Instructions: Sliding scale SUBCUT ; lisinopril 2.5 mg tablet 2.5 mg PO DAILY (DME) Dexcom G6 Sensor Device See Rx Instructions .ROUTE .MEDSUPPLY Qty: 3 Rx Instructions: As directed norgestimate-ethinyl estradiol [Tri-VyLibra Lo] 0.18/0.215/0.25 mg-25 mcg tablet See Rx Instructions .ROUTE .COMPLEX Qty: 84 3RF Dose Instruction: TAKE ONE TABLET BY MOUTH DAILY Rx Instructions: TAKE ONE TABLET BY MOUTH DAILY bupropion HCl [Wellbutrin XL] 300 mg tablet extended release 24 hr 300 mg PO QAM Qty: 30 11RF buspirone 10 mg tablet 20 mg PO BID Qty: 120 11RF naltrexone 50 mg tablet 50 mg PO DAILY Qty: 30 11RF Trintellix 20 mg tablet 20 mg PO DAILY Qty: 30 11RF hydroxyzine HCl 50 mg tablet 100 mg PO .HS PRN (Reason: insomnia) Qty: 60 11RF (DME) Omnipod 5 G6-G7 Pods (Gen 5) Cartridge See Rx Instructions .ROUTE .MEDSUPPLY Qty: 5 Rx Instructions: As directed (DME) Dexcom G6 Transmitter Device See Rx Instructions .ROUTE .MEDSUPPLY Qty: 1 Rx Instructions: As directed insulin glargine [Lantus Solostar U-100 Insulin] 100 unit/mL (3 mL) insulin pen SUBCUT insulin lispro 100 unit/mL insulin pen SUBCUT ferrous gluconate 324 mg (38 mg iron) tablet PO atorvastatin [Lipitor] 20 mg tablet 20 mg PO DAILY 30 Days Qty: 30 3RF Discharge Orders: Discharge ED (Routine); Ordered 12/30/24 Ordered By: Partha Rodriguez Referrals: Arina Mendoza DO [Primary Care Provider, Family Practice] Patient Instructions: Near Syncope (ED), Patient Portal & Lisa Instructions Activity Restrictions/Additional Instructions: Blood work was reassuring and that it does not show evidence of DKA or metabolic acidosis. The lightheadedness you felt was likely multifactorial, with dehydration playing a major component. Please use Zofran as needed to stay well-hydrated. I suspect the nausea and vomiting and diarrhea are due to a viral ideology which will spontaneously resolve without need for antibiotics or further intervention. You are always welcome back in the emergency department if needed. Print Language: Azeri Coding Level of Care Code ED Pipe Wrapping Machine Operator for Brenda Salas
[2024-12-30] MEDS: ondansetron 2 mg/ML SDV 2 mL 4 MG IVP (20:06)
[2024-12-30] MEDS: ondansetron hcl ODT 4 mg Tab PO (22:08)
== END 2024-12-30 22:15 | disposition home or self-care (01) ==
PROVIDERS: Emergency Medicine; Emergency Provider Student in an Organized Health Care Education/Training Program; PCP Family Medicine
DX: R42 Dizziness and giddiness (principal); R55 Syncope and collapse; R11.2 Nausea with vomiting, unspecified; R19.7 Diarrhea, unspecified; Z79.4 Long term (current) use of insulin; E10.3599 Type 1 diabetes mellitus with proliferative diabetic retinopathy without macular edema, unspecified eye
CPT/HCPCS: 36416; 80053; 82009; 82962; 85025; 93005; 96361; 96374; 99284; J2405; J7030; Q0162

== ENCOUNTER → 2025-02-25 09:40 | Outpatient (BNVA) | payer OTHER, SELFPAY | PROVIDERS: PCP Family Medicine; Visit Provider Family Medicine | DX: D50.9 Iron deficiency anemia, unspecified (principal) | CPT/HCPCS: 82728; 83550 ==

== ENCOUNTER 2025-03-18 14:41 | Outpatient (CLI) | payer SELFPAY ==
[2025-03-18 15:23] LABS: HF Add Manual Diff No
[2025-03-18 15:26] LABS: Hematocrit 40.8 % (36-47); Hemoglobin 12.90 g/dL (11.27-16.99); Mean Corpuscular HGB Conc 31.6 g/dL (30-55); Mean Corpuscular Hemoglobin 27.7 pg (27-33); Mean Corpuscular Volume 87.7 fl (85-98); Nucleated Red Blood Cells % 0 %; Platelet Count 245 10^3/cmm (157-399); Red Blood Count 4.65 10^6/uL (3.85-5.65); White Blood Count 4.75 10^3/uL (3.29-11.43)
[2025-03-18 15:37] LABS: Estmated Average Glucose 203; Hemoglobin A1C 8.7 % (4.0-6.0)
[2025-03-18 15:53] LABS: Alanine Aminotransferase 10 U/L (0-33); Albumin Level 4.1 g/dL (3.5-5.2); Alkaline Phosphatase 70 U/L (35-105); Anion Gap 14.4 (5-19); Aspartate Amino Transferase 13 U/L (0-32); Blood Urea Nitrogen 14 mg/dL (6-20); Calcium 9.3 mg/dL (8.5-10.5); Carbon Dioxide 28 mmol/L (22-29); Chloride 103 mmol/L (98-107); Cholesterol 140 mg/dL (0-200); Globulin 3.2 g/dL (1.3-4.6); Glucose 186 mg/dL (65-115); HDL Cholesterol 70 mg/dL (60-100); Osmolality Calculated 297 mOsm/kg (285-295); Potassium 4.4 mmol/L (3.5-5.1); Sodium 141 mmol/L (136-145); Total Protein 7.3 g/dL (6.6-8.7); Triglycerides 127 mg/dL (0-150)
== END 2025-03-18 14:42 | disposition home or self-care (01) ==
PROVIDERS: PCP Family Medicine; Visit Provider Dermatology
DX: Z01.89 Encounter for other specified special examinations (principal)

== ENCOUNTER 2025-04-28 08:04 | Outpatient (CLI) | payer OTHER, SELFPAY ==
--- NOTE | 2025-04-28 08:13 | MM_ITS ---
WS: [id number] BILATERAL SCREENING DIGITAL TOMOSYNTHESIS MAMMOGRAM WITH CAD HISTORY: SCREENING COMPARISON: 04/23/2024, 05/31/2020 Bilateral CC and MLO views with tomosynthesis and synthetic mammography submitted. Computer aided detection analyzed. Breast composition: The breasts are heterogeneously dense, which may obscure small masses. No suspicious masses, microcalcifications or architectural distortion. MM/MM scr tomosynthesis [id number] IMPRESSION: BI-RADS: 1 - Negative FOLLOW UP: 1 Year Follow-up
== END 2025-04-28 08:05 | disposition home or self-care (01) ==
LOC: RAD 08:05
PROVIDERS: PCP Family Medicine; Visit Provider Family Medicine
DX: Z12.31 Encounter for screening mammogram for malignant neoplasm of breast (principal); R92.333 Mammographic heterogeneous density, bilateral breasts
CPT/HCPCS: 77063; 77067

== ENCOUNTER 2025-06-17 13:08 | Outpatient (CLI) | payer SELFPAY ==
[2025-06-17 14:09] LABS: Hematocrit 41.0 % (36-47); Hemoglobin 12.90 g/dL (11.27-16.99); Mean Corpuscular HGB Conc 31.5 g/dL (30-55); Mean Corpuscular Hemoglobin 28.4 pg (27-33); Mean Corpuscular Volume 90.1 fl (85-98); Nucleated Red Blood Cells % 0 %; Platelet Count 262 10^3/cmm (157-399); Red Blood Count 4.55 10^6/uL (3.85-5.65); White Blood Count 6.38 10^3/uL (3.29-11.43)
[2025-06-17 14:34] LABS: Estmated Average Glucose 197; Hemoglobin A1C 8.5 % (4.0-6.0)
[2025-06-17 14:49] LABS: Alanine Aminotransferase 10 U/L (0-33); Albumin Level 3.8 g/dL (3.5-5.2); Alkaline Phosphatase 63 U/L (35-105); Anion Gap 14.1 (5-19); Aspartate Amino Transferase 12 U/L (0-32); Blood Urea Nitrogen 12 mg/dL (6-20); Calcium 9.0 mg/dL (8.5-10.5); Carbon Dioxide 26 mmol/L (22-29); Chloride 102 mmol/L (98-107); Cholesterol 165 mg/dL (0-200); Globulin 2.7 g/dL (1.3-4.6); Glucose 228 mg/dL (65-115); HDL Cholesterol 85 mg/dL (60-100); Osmolality Calculated 293 mOsm/kg (285-295); Potassium 4.1 mmol/L (3.5-5.1); Sodium 138 mmol/L (136-145); Thyroid Stimulating Hormone 0.47 uIU/mL (0.27-4.20); Total Protein 6.5 g/dL (6.6-8.7); Triglycerides 90 mg/dL (0-150)
== END 2025-06-17 13:09 | disposition home or self-care (01) ==
PROVIDERS: PCP Family Medicine; Visit Provider Dermatology
DX: Z01.89 Encounter for other specified special examinations (principal)
CPT/HCPCS: 36415; 80053; 80061; 82306; 83036; 84443; 85025